=== PATIENT | female | born 1930 | race Caucasian/White ===

== ENCOUNTER 2016-04-29 12:21 | Emergency (ER) | payer OTHER, MEDICARE ==
[~2016-04-29] VITALS: Ht 170.2 cm; Wt 72.6 kg
[~2016-04-29 12:21] MED LIST: ALPRAZOLAM0.5 M4 PO; ANUSOL-HC30 GM TOP; ASPIR 8181 MG PO; ASPIRIN EC81 M1 PO; AUGMENTIN 875 M1 TAB PO; BALANCED B COM1 EACH PO; CENTRUM SILVER1 EAC3 PO; CLINDAMYCIN300 MG PO; COUMADIN 3 MG TA3 MG PO; COUMADIN2 M1 PO; DILTIAZEM HCL360 M1 PO; FIORICET 325 MG1 TAB PO; FISH OIL 500 M1 EAC1 PO; FISH OIL CONC1000 MG PO; FUROSEMIDE20 M1 PO; LOPRESSOR50 M1 PO; QUETIAPINE FUMA50 M1 PO; VITAMIN C1000 M4 PO; VITAMIN D3400 UNI1 PO; VITAMIN E400 UNI1 PO; ZINC CHELATED50 MG PO
--- NOTE | 2016-04-29 13:12 | ED DYSPNEA/ASTHMA COMPLAINT ---
History of Present Illness General Chief Complaint: Dyspnea (COPD, CHF, Other) Stated Complaint: SOB, COUGH Source: patient, old records Exam Limitations: no limitations Vital Signs & Intake/Output Vital Signs & Intake/Output Vital Signs Date Time Temp Pulse Resp B/P Pulse O2 O2 Flow FiO2 Ox Delivery Rate 04/29 1429 97.0 82 18 153/71 92 Room Air 04/29 1345 97.8 80 20 138/74 96 Room Air 04/29 1233 97.4 84 20 145/89 97 Room Air Room Air Allergies Coded Allergies: albuterol (Mild, AFIB 04/11/15) Reconcile Medications Alprazolam 0.5 MG TABLET 1 TAB PO BIDP PRN ANXIETY (Reported) Ascorbic Acid (Vitamin C) 1,000 MG TABLET 1 TAB PO DAILY SUPPLEMENT (Reported ) Aspirin (Ecotrin*) 81 MG TABLET.DR 1 TAB PO DAILY HEART HEALTH (Reported) Cholecalciferol (Vitamin D3) (Vitamin D3) 400 UNIT TABLET 1 TAB PO DAILY SUPPLEMENT (Reported) Furosemide 20 MG TABLET 1 TAB PO Saturday WATER PILL (Reported) Guaifenesin/Dextromethorphan (Mucinex Dm ER 600-30 MG Tablet) 600 MG-30 MG TAB.ER.12H 1 TAB PO BIDP PRN COUGH/CONGESTION Metoprolol Tartrate (Lopressor) 50 MG TABLET 1 TAB PO BID BP (Reported) Multivit-Min/FA/Lycopen/Lutein (Centrum Silver Tablet) 0.4 MG-300 MCG-250 MCG TABLET 1 TAB PO DAILY SUPPLEMENT (Reported) [facility]-3/Dha/Epa/Fish Oil (Fish Oil 500 MG Softgel) 60 MG-90 MG-500 MG CAPSULE 3 CAP PO DAILY SUPPLEMENT (Reported) Quetiapine Fumarate 50 MG TABLET 1 TAB PO QPM DEPRESSION (Reported) Vitamin B Complex & Vit C No.3 (Balanced B Complex-Vit C) 15-10-300 TABLET.ER 1 TAB PO DAILY SUPPLEMENT (Reported) Vitamin E (Dl,Tocopheryl Acet) (Vitamin E) 400 UNIT CAPSULE 1 CAP PO DAILY SUPPLEMENT (Reported) Warfarin Sodium (Coumadin) 2 MG TABLET 1 TAB PO 1700 BLOOD THINNER (Reported) ZINC (Zinc Chelated) 50 MG TABLET 1 TAB PO DAILY SUPPLEMENT (Reported) Triage Note: TRIAGE: 85 Y/O FEMALE PRESENTS C/O "PALPITATIONS, SHORTNESS OF BREATH, AND I CAUGHT MY 'S PNEUMONIA. HE'S HERE, TOO. WHEN I BREATHE, I GET A LOT OF PAIN." SPO2 97%. Triage Nurses Notes Reviewed? yes Onset: Gradual Duration: day(s):, continues in ED, waxing and waning Severity: moderate, severe Activities at Onset: none Modifying Factors: Worsens With: other (EXERTION/COUGH). HPI: Patient presents for evaluation of chest pain dyspnea and mildly productive cough for 2 weeks. Patient states her just returned from a hospitalization for pneumonia and she feels she might be coming down with a pneumonia too. Past History Travel History Traveled to [place] past 21 day No Medical History Any Pertinent Medical History? 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 No Review of Systems Review of Systems Constitutional: Reports: no symptoms. EENTM: Reports: no symptoms. Respiratory: Reports: see HPI. Cardiovascular: Reports: no symptoms. GI: Reports: no symptoms. Genitourinary: Reports: no symptoms. Musculoskeletal: Reports: no symptoms. Skin: Reports: no symptoms. Neurological/Psychological: Reports: no symptoms. Hematologic/Endocrine: Reports: no symptoms. Immunologic/Allergic: Reports: no symptoms. All Other Systems: Reviewed and Negative Physical Exam Physical Exam Respiratory: SEE BELOW Comments: Gen.: Well-nourished, well-developed, no acute respiratory distress. Head: Normocephalic, atraumatic. Eyes: Normal inspection bilaterally Ears: Normal inspection bilaterally Nose: Normal inspection Throat/mouth : Moist mucosa Neck: Supple, full range of motion, no goiter Heart: Regular rate and rhythm, no murmurs rubs or gallops Lungs: Clear to auscultation bilaterally with normal air entry Chest: Nontender Back: Normal range of motion Abdomen: Soft, nontender, nondistended, normal bowel sounds Extremities: Normal range of motion grossly, equal radial pulses, no cyanosis clubbing or edema Neurologic: Cranial nerves grossly intact, speech is clear Skin: warm and dry Psychiatric: Calm, cooperative, no apparent delusions or hallucinations Core Measures ACS in differential dx? No Severe Sepsis Present: No Septic Shock Present: No Progress Differential Diagnosis: asthma, bronchitis, CHF, COPD, pneumonia, pneumothorax Plan of Care: Orders Procedure Date/time Status TROPONIN LEVEL 04/29 131 Complete MAGNESIUM 04/29 131 Complete CBC WITHOUT DIFFERENTIAL 04/29 131 Complete BASIC METABOLIC PANEL 04/29 131 Complete EKG 04/29 1222 Active Laboratory Tests 04/29/16 1322: Anion Gap 10, Estimated GFR > 60, BUN/Creatinine Ratio 12.9, Glucose 99, Calcium 9.6, Magnesium 2.4 H, Troponin I < 0.01, CBC w Diff NO MAN DIFF REQ, RBC 4.60, MCV 84.3, MCH 28.2, RDW 15.7 H, MPV 10.2, Gran % 62.7, Lymphocytes % 21.6, Monocytes % 13.7 H, Eosinophils % 1.1, Basophils % 0.9, Absolute Granulocytes 2.9, Absolute Lymphocytes 1.0 L, Absolute Monocytes 0.6, Absolute Eosinophils 0.1, Absolute Basophils 0, PUBS MCHC 33.4 Diagnostic Imaging: Discussed w/RAD: CT Scan. Radiology Impression: PATIENT: YOKO HUGHES PRESENT AGE: 85 PATIENT ACCOUNT NO: [id number] : 29 LOCATION: [facility] ORDERING PHYSICIAN: TOM BISHOP MD SERVICE DATE: 04/29/16 EXAM TYPE: RAD - XRY-CHEST XRAY, PA AND LATERAL EXAMINATION: XR CHEST CLINICAL INFORMATION: Shortness of breath. Pneumonia. COMPARISON: 07/01/2015 TECHNIQUE: 2 views of the chest were obtained. FINDINGS: Heart size remains mildly enlarged. Evidence of previous cardiac surgery. Dual-chamber pacer leads remain stable and grossly intact. Focal eventration right hemidiaphragm anteromedially stable. No CHF. No infiltrate or major zones of airspace disease. No ectopic air. No pleural fluid. Kyphosis upper dorsal spine. IMPRESSION: No infiltrate or CHF. DICTATED BY: THA VALLECILLO MD DATE/TIME DICTATED:04/29/161340 SCROLL SAW OPERATOR:JESSENIA DATE/ TIME TRANSCRIBED:03/19/17 / 1341 CONFIDENTIAL, DO NOT COPY WITHOUT APPROPRIATE AUTHORIZATION. <Electronically signed in Other Vendor System> SIGNED BY: THA VALLECILLO MD 04/29/16 6004 Initial ED EKG: av PACED RHYTHM WITH RATE OF 89 Prior EKG: unchanged Comments: 04/29/2016 3:14:27 PM I have updated patient on test results. She declined an asthma inhaler stating she gets a severe reaction to those. She is simply requesting a cough medication. Departure Departure Disposition: HOME OR SELF CARE Condition: Stable Clinical Impression Primary Impression: Bronchitis Referrals: SUKI GARDNER,PRISCILLA Quiroga (PCP/Family) Additional Instructions: Cough and congestion medication as prescribed. Maintained a good fluid intake. No exertion. Follow-up with your primary care doctor if not improving over the next 5-7 days. Return if any concerns or sudden worsening. Thank you for choosing the [facility] Department for your care. It was a pleasure to serve you today. Tom Bishop M.D. [facility] Departure Forms: Customer Survey General Discharge Information Prescriptions: Current Visit Scripts Guaifenesin/Dextromethorphan (Mucinex Dm ER 600-30 MG Tablet) 1 TAB PO BIDP PRN COUGH/CONGESTION #20 TAB Critical Care Note Critical Care Note Critical Care Time: non-applicable
[2016-04-29 13:42] LABS: ABSOLUTE BASOPHIL COUNT 0 /CUMM (0.0-0.2); ABSOLUTE EOSINOPHIL COUNT 0.1 /CUMM (0.0-0.7); ABSOLUTE GRANULOCYTE CT 2.9 /CUMM (1.4-6.5); ABSOLUTE MONOCYTE COUNT 0.6 /CUMM (0.10-0.60); BASOPHIL % 0.9 % (0.0-2.0); EOSINOPHIL % 1.1 % (0-5); GRANULOCYTE % 62.7 % (42.2-75.2); HEMATOCRIT 38.8 % (37-47); MEAN CORPUSCULAR HGB 28.2 PG (27.0-31.0); MEAN CORPUSCULAR HGB CONC 33.4 G/DL (33.0-37.0); MEAN CORPUSCULAR VOLUME 84.3 FL (81.0-99.0); MEAN PLATELET VOLUME 10.2 FL (7.4-10.4); PLATELET COUNT 139 /CUMM (130-400); RBC DISTRIBUTION WIDTH 15.7 % (11.5-14.5); WHITE BLOOD CELL COUNT 4.6 /CUMM (4.8-10.8)
--- NOTE | 2016-04-29 13:45 | RADIOLOGY REPORT ---
EXAMINATION: XR CHEST CLINICAL INFORMATION: Shortness of breath. Pneumonia. COMPARISON: 07/01/2015 TECHNIQUE: 2 views of the chest were obtained. FINDINGS: Heart size remains mildly enlarged. Evidence of previous cardiac surgery. Dual-chamber pacer leads remain stable and grossly intact. Focal eventration right hemidiaphragm anteromedially stable. No CHF. No infiltrate or major zones of airspace disease. No ectopic air. No pleural fluid. Kyphosis upper dorsal spine. IMPRESSION: No infiltrate or CHF.
[2016-04-29 14:29] VITALS: BP 153/71
[2016-04-29] MEDS ORDERED: MUCINEX DM ER1 EAC1 PO (15:14)
== END 2016-04-29 15:47 ==
LOC: ERH 12:21
PROVIDERS: Emergency Medicine
DX: J40 Bronchitis, not specified as acute or chronic (principal); Z87.891 Personal history of nicotine dependence
CPT/HCPCS: 93005; 93010

== ENCOUNTER 2016-05-01 07:30 | Emergency (ER) | payer OTHER, MEDICARE ==
[~2016-05-01] VITALS: Ht 170.2 cm; Wt 72.6 kg
[~2016-05-01 07:30] MED LIST changes: +MUCINEX DM ER1 EAC1 PO
--- NOTE | 2016-05-01 07:36 | ED INFLUENZA/URI COMPLAINT ---
History of Present Illness General Chief Complaint: Upper Respiratory Sx/Fever Stated Complaint: URI SEEN HERE SATURDAY Source: patient Exam Limitations: no limitations Vital Signs & Intake/Output Vital Signs & Intake/Output Vital Signs Date Time Temp Pulse Resp B/P Pulse O2 O2 Flow FiO2 Ox Delivery Rate 05/01 0850 98.3 72 18 125/71 98 Room Air 05/01 0820 95 05/01 0733 97.4 88 16 133/87 96 Room Air Allergies Coded Allergies: albuterol (Mild, AFIB 04/11/15) Reconcile Medications Alprazolam 0.5 MG TABLET 1 TAB PO BIDP PRN ANXIETY (Reported) Ascorbic Acid (Vitamin C) 1,000 MG TABLET 1 TAB PO DAILY SUPPLEMENT (Reported ) Aspirin (Ecotrin*) 81 MG TABLET.DR 1 TAB PO DAILY HEART HEALTH (Reported) Azithromycin (Zithromax) 250 MG TABLET 1 DP PO D BRONCHITIS START 05/02 Cholecalciferol (Vitamin D3) (Vitamin D3) 400 UNIT TABLET 1 TAB PO DAILY SUPPLEMENT (Reported) Furosemide 20 MG TABLET 1 TAB PO Saturday WATER PILL (Reported) Guaifenesin/Dextromethorphan (Mucinex Dm ER 600-30 MG Tablet) 600 MG-30 MG TAB.ER.12H 1 TAB PO BIDP PRN COUGH/CONGESTION Metoprolol Tartrate (Lopressor) 50 MG TABLET 1 TAB PO BID BP (Reported) Multivit-Min/FA/Lycopen/Lutein (Centrum Silver Tablet) 0.4 MG-300 MCG-250 MCG TABLET 1 TAB PO DAILY SUPPLEMENT (Reported) [facility]-3/Dha/Epa/Fish Oil (Fish Oil 500 MG Softgel) 60 MG-90 MG-500 MG CAPSULE 3 CAP PO DAILY SUPPLEMENT (Reported) Prednisone 20 MG TABLET 2 TAB PO D BRONCHITIS Quetiapine Fumarate 50 MG TABLET 1 TAB PO QPM DEPRESSION (Reported) Vitamin B Complex & Vit C No.3 (Balanced B Complex-Vit C) 15-10-300 TABLET.ER 1 TAB PO DAILY SUPPLEMENT (Reported) Vitamin E (Dl,Tocopheryl Acet) (Vitamin E) 400 UNIT CAPSULE 1 CAP PO DAILY SUPPLEMENT (Reported) Warfarin Sodium (Coumadin) 2 MG TABLET 1 TAB PO 1700 BLOOD THINNER (Reported) ZINC (Zinc Chelated) 50 MG TABLET 1 TAB PO DAILY SUPPLEMENT (Reported) Triage Note: 85 Y/O FEMALE C/O CONTINUED URI SYMPTOMS - WAS EVAL'D SATURDAY AND STATES SHE FEELS NO BETTER. NOW C/O NAUSEA/VOMITING AND WEAKNESS. STATES IS CURRENTLY ADMITTED FOR PNEUMONIA AND PT IS CONCERNED SHE HAS IT WELL. REPORTS "YELLOW MUCOUS". AFEBRILE. Triage Nurses Notes Reviewed? yes HPI: 85 year old female presents with cough, fever, chills, nausea and loss of appetite for the last 1.5 weeks. Intermittent production of clear sputum now turning darker. Associated palpitations. She was seen here on Saturday and given mucinex DM. She had a negative CXR that day and normal blood work. Past History Travel History Traveled to [place] past 21 day No Medical History Any Pertinent Medical History? 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 No Review of Systems Review of Systems Constitutional: Reports: chills, weakness. EENTM: Reports: no symptoms. Respiratory: Reports: cough, short of breath, sputum production. Cardiovascular: Denies: chest pain, palpitations. GI: Reports: see HPI (poor po intake). Genitourinary: Reports: no symptoms. Musculoskeletal: Reports: no symptoms. Skin: Reports: no symptoms. Neurological/Psychological: Reports: no symptoms. Hematologic/Endocrine: Denies: bruising, bleeding, polyuria, polydipsia. Immunologic/Allergic: Denies: splenectomy. All Other Systems: Reviewed and Negative Physical Exam Physical Exam General Appearance: alert, awake, anxious Head: atraumatic Eyes: Bilateral: PERRL, EOMI. Ears, Nose, Throat: DRY TONGUE Respiratory: wheezing Cardiovascular: regular rate/rhythm Peripheral Pulses: 2+ radial (R), 2+ radial (L) Gastrointestinal: normal bowel sounds, soft, non-tender Neurologic/Psych: awake, alert Core Measures Severe Sepsis Present: No Septic Shock Present: No Progress Differential Diagnosis: pneumonia, BRONCHITIS Plan of Care: Orders Procedure Date/time Status EKG 05/01 0826 Active RT ED ORDERS 05/01 0758 Active Improved aeration after Atrovent and patient feels better. Vital signs within normal limits in the emergency department. Patient given prednisone and azithromycin as her sputum has changed color and she is feeling worse. She will follow up with her PCP in the office. (DANA GARDNER,SRINATH) Initial ED EKG: pacemaker rhythm Prior EKG: unchanged Departure Departure Time of Disposition: 844 Disposition: HOME OR SELF CARE Condition: Stable Clinical Impression Primary Impression: Bronchitis Referrals: SUKI GARDNER,PRISCILLA Quiroga (PCP/Family) Additional Instructions: Take the prednisone and azithromycin as directed. You may continue the over-the -counter Mucinex at home. Drink plenty of fluids and follow-up with her doctor in the office. Return to the ER for any changing or worsening symptoms. Departure Forms: Customer Survey General Discharge Information Prescriptions: Current Visit Scripts Prednisone 2 TAB PO D #6 TAB Azithromycin (Zithromax) 1 DP PO D #4 TAB START 05/02
[2016-05-01] MEDS ORDERED: PREDNISONE20 M1 PO (08:47)
[2016-05-01] MEDS ORDERED: ZITHROMAX250 M2 PO (08:47)
[2016-05-01 08:50] VITALS: BP 125/71
== END 2016-05-01 09:16 ==
LOC: ERH 07:30
DX: J40 Bronchitis, not specified as acute or chronic (principal); Z87.891 Personal history of nicotine dependence
CPT/HCPCS: 1263; 93005; 93010; J0456

== ENCOUNTER 2016-05-04 08:17 | Inpatient (IN) | payer OTHER, MEDICARE ==
[~2016-05-04] VITALS: Ht 170.2 cm; Wt 72.6 kg
[~2016-05-04 08:17] MED LIST changes: +PREDNISONE20 M1 PO; +ZITHROMAX250 M2 PO
--- NOTE | 2016-05-04 09:05 | ED DYSPNEA/ASTHMA COMPLAINT ---
History of Present Illness General Chief Complaint: Dyspnea (COPD, CHF, Other) Stated Complaint: SOB; URI Source: patient, family, old records Exam Limitations: no limitations Allergies Coded Allergies: No Known Allergies (05/04/16) Reconcile Medications Alprazolam 0.5 MG TABLET 1 TAB PO BIDP PRN ANXIETY (Reported) Ascorbic Acid (Vitamin C) 1,000 MG TABLET 1 TAB PO DAILY SUPPLEMENT (Reported ) Aspirin (Ecotrin*) 81 MG TABLET.DR 1 TAB PO DAILY HEART HEALTH (Reported) Cholecalciferol (Vitamin D3) (Vitamin D3) 400 UNIT TABLET 1 TAB PO DAILY SUPPLEMENT (Reported) Furosemide 20 MG TABLET 1 TAB PO Saturday WATER PILL (Reported) Guaifenesin/Dextromethorphan (Mucinex Dm ER 600-30 MG Tablet) 600 MG-30 MG TAB.ER.12H 1 TAB PO BIDP PRN COUGH/CONGESTION Metoprolol Tartrate (Lopressor) 50 MG TABLET 1 TAB PO BID BP (Reported) Multivit-Min/FA/Lycopen/Lutein (Centrum Silver Tablet) 0.4 MG-300 MCG-250 MCG TABLET 1 TAB PO DAILY SUPPLEMENT (Reported) [place]-3/Dha/Epa/Fish Oil (Fish Oil 500 MG Softgel) 60 MG-90 MG-500 MG CAPSULE 3 CAP PO DAILY SUPPLEMENT (Reported) Quetiapine Fumarate 50 MG TABLET 1 TAB PO QPM DEPRESSION (Reported) Vitamin B Complex & Vit C No.3 (Balanced B Complex-Vit C) 15-10-300 TABLET.ER 1 TAB PO DAILY SUPPLEMENT (Reported) Vitamin E (Dl,Tocopheryl Acet) (Vitamin E) 400 UNIT CAPSULE 1 CAP PO DAILY SUPPLEMENT (Reported) Warfarin Sodium (Coumadin) 2 MG TABLET 1 TAB PO 1700 BLOOD THINNER (Reported) ZINC (Zinc Chelated) 50 MG TABLET 1 TAB PO DAILY SUPPLEMENT (Reported) Triage Note: PT C/O SOB AND WHEEZING SINCE YESTERDAY. PT C/O PRODUCTIVE COUGH AND STATES SHE CAN'T GET IN TOUCH WITH DR BURGOS. Triage Nurses Notes Reviewed? yes HPI: 85-year-old female returns to the ER for her third visit for same complaints of shortness of breath wheezing cough congestion and productive sputum. She has had symptoms for approximately 2 weeks and has been seen here twice before for this. First visit she was placed on Mucinex, second visit which was 3 days ago, she was given a short course of prednisone and Zithromax, she had negative chest x-ray and labs previously, she feels no better. Her is also sick with pneumonia. She has a history of anxiety and daughter believes that there may be a component of anxiety to this as well. She denies any fever or chest pain. She has a remote history of smoking many years ago. She has no diagnosis of COPD or pneumonia as recently (SPARKLE FITZPATRICK) Vital Signs & Intake/Output Vital Signs & Intake/Output Vital Signs Date Time Temp Pulse Resp B/P Pulse O2 O2 Flow FiO2 Ox Delivery Rate 05/04 1508 95 Room Air 05/04 1508 98.1 77 18 146/90 95 Room Air 05/04 1121 96.9 73 18 150/72 96 05/04 0937 93 05/04 0828 97.8 86 20 162/98 96 Room Air Past History Travel History Traveled to [place] past 21 day No Medical History Any Pertinent Medical History? 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 No (SPARKLE FITZPATRICK) Review of Systems Review of Systems Constitutional: Reports: see HPI. EENTM: Reports: no symptoms. Cardiovascular: Reports: no symptoms. GI: Reports: no symptoms. Genitourinary: Reports: no symptoms. Musculoskeletal: Reports: no symptoms. Skin: Reports: no symptoms. Neurological/Psychological: Reports: no symptoms. Hematologic/Endocrine: Reports: no symptoms. Immunologic/Allergic: Reports: no symptoms. All Other Systems: Reviewed and Negative (SPARKLE FITZPATRICK) Physical Exam Physical Exam Respiratory: chest non-tender, no respiratory distress, INCREASED RESPIRATORY RATE. mILDLY PROLONGED EXPIRATORY PHASE. pOSITIVE RHONCHI AND WHEEZING NOTED THROUGHOUT Cardiovascular: regular rate/rhythm, murmur Comments: Well-developed well-nourished no apparent distress. HEENT: Atraumatic, extraocular motion intact Neck: Supple, no lymphadenopathy, no JVD Back: Nontender Respiratory: No respiratory distress Abdomen: Soft nontender Extremities: No edema, full range of motion Neuro: Alert and oriented x3 Psych: Mood affect normal, normal memory normal judgment. Skin: Warm and dry, no rash on exposed skin (ROLAN TREVIZO,SPARKLE) Core Measures ACS in differential dx? No Severe Sepsis Present: No Septic Shock Present: No (JAY LIN DO) Progress Diagnostic Imaging: Viewed by Me: Radiology Read. Discussed w/RAD: Radiology Read. CXR Impression: PATIENT: YOKO HUGHES PRESENT AGE: 85 PATIENT ACCOUNT NO: [id number] : 29 LOCATION: [facility] ORDERING PHYSICIAN: SPARKLE TREVIZO SERVICE DATE: 05/04/16 EXAM TYPE: RAD - XRY-CHEST XRAY, PA AND LATERAL EXAMINATION: XR CHEST CLINICAL INFORMATION: Give cough. COMPARISON: 04/29/2016. 07/01/2015. TECHNIQUE: 2 views of the chest were obtained. FINDINGS: Patient is status post median sternotomy and valve replacement most likely mitral. A right pectoral pacer is identified with multiple leads unchanged. The cardiomediastinal silhouette is otherwise unremarkable. The lungs are hyperexpanded. The lungs and pleural spaces appear clear. There is no evidence of pneumothorax or pulmonary edema. Included osseous structures appear largely unremarkable. IMPRESSION: There are postoperative changes with underlying COPD changes suggested without evidence of an acute intrathoracic process. DICTATED BY: ZENA SPANGLER MD DATE/TIME DICTATED:05/04 DIESEL ENGINE MECHANIC APPRENTICE:JESSENIA DATE/TIME TRANSCRIBED:05/04/16934 Initial ED EKG: A-V DUAL PACED. 80BPM Prior EKG: unchanged Rhythm Strip: PACED Comments: PATIENT GIVEN 60 MG OF SOLU-MEDROL iv AND GIVEN A IPRATROPIUM breathing treatment. She feels no better after multiple re-evaluations. Chest x-ray is unremarkable except for possible mild early COPD. Lab testing is unremarkable except for mild elevated in her PT/INR. Patient ambulated off oxygen with a O2 sat monitor and desatted to 88% and became significant short of breath. She continues to wheeze and cough with congestion. We will admit her to the hospital for continued neb treatments and IV steroids as she has failed outpatient treatment (ROLAN TREVIZO,SPARKLE) Differential Diagnosis: AMI, bronchitis, CHF, COPD, pericarditis, pulmonary embolism, pneumonia, unstable angina Plan of Care: Orders Procedure Date/time Status PROTHROMBIN TIME 05/05 0600 Active CBC WITHOUT DIFFERENTIAL 05/05 0600 Active BASIC ELECTROLYTES PLUS BUN&CR 05/05 0600 Active Heart Healthy Diet 05/04 L Complete Heart Healthy Diet 05/04 D Active Vital Signs 05/04 1442 Active Teach/Educate 05/04 1442 Active Pain Treatment and Response 05/04 1442 Active Nutritional Intake, Monitor 05/04 1442 Active Isolation 05/04 1442 Active Intake & Output 05/04 1442 Active Patient Care Conference 05/04 1442 Active Activity/Ambulation 05/[address] CHEST WO IV CONTRAST 05/04 1312 Active Pathway - chart 05/04 1236 Active House Staff 05/04 1236 Active TRC EVALUATION (GEN) 05/04 1231 Active RAPID VIRAL INFLUENZA A 05/04 1231 Complete STREP PNEUMO URINARY ANTIGEN 05/04 1231 Active LEGIONELLA URINARY ANTIGEN 05/04 1231 Active LOWER RESPIRATORY CULTURE 05/04 1231 Active BLOOD CULTURE 05/04 1231 Active URINALYSIS 05/04 1231 Active Admit to inpatient 05/04 1228 Active Patient Data 05/04 1212 Active Misc Message 05/04 1210 Active ED Holding Orders 05/04 1210 Active Code Status 05/04 1210 Active Patient Data 05/04 1144 Active Add-on Test (ER Only) 05/04 0946 Active PROTHROMBIN TIME 05/04 0923 Complete TROPONIN LEVEL 05/04 0854 Complete COMPREHENSIVE METABOLIC PANEL 05/04 0854 Complete CBC WITHOUT DIFFERENTIAL 05/04 0854 Complete B-TYPE NATRIURETIC PEP (BNP) 05/04 0854 Complete EKG 05/04 0818 Active VTE Mechanical Prophylaxis 05/04 UNK Active Vital Signs 05/04 UNK Active Intake & Output 05/04 UNK Active Current Medications Sig/Cristhian Start time Last Medication Dose Stop Time Status Admin Furosemide 20 MG 05/07 1000 AC (Lasix) Aspirin Buffered 81 MG DAILY 05/05 1000 AC (Ecotrin) Metoprolol Tartrate 50 MG BID 05/04 2200 AC (Lopressor) Quetiapine Fumarate 50 MG QPM 05/04 2200 AC (SEROquel) Acetaminophen 650 MG Q6P PRN 05/04 1245 AC (Tylenol) Oxycodone/ 1 TAB Q6P PRN 05/04 1245 AC Acetaminophen (Percocet) Alprazolam 0.5 MG Q12P PRN 05/04 1230 AC (Xanax) 05/11 1229 Laboratory Tests 05/04/16 0923: Anion Gap 11, Estimated GFR > 60, BUN/Creatinine Ratio 25.0, Glucose 121 H, Calcium 9.9, Total Bilirubin 0.5, AST 38 H, ALT 43, Alkaline Phosphatase 68, Troponin I < 0.01, Oav-Y-Uvkkoxjbkwu Pept 865 H, Total Protein 6.9, Albumin 4.1 , Globulin 2.8, Albumin/Globulin Ratio 1.5, PT 49.9 *H, INR 4.83 *H, CBC w Diff NO MAN DIFF REQ, RBC 5.13, MCV 83.0, MCH 28.1, RDW 15.1 H, MPV 10.0, Gran % 73.2, Lymphocytes % 22.4, Monocytes % 4.3, Eosinophils % 0, Basophils % 0.1, Absolute Granulocytes 3.6, Absolute Lymphocytes 1.1 L, Absolute Monocytes 0.2, Absolute Eosinophils 0, Absolute Basophils 0, PUBS MCHC 33.9 Microbiology 05/04 1333 NASOPHARYN: Influenza Virus A & B Rapid Smear - COMP 05/04 1327 BLOOD: Blood Culture - RECD 05/04 1301 BLOOD: Blood Culture - RECD 05/04 1231 URINE ROUT: Legionella Antigen - ORD 05/04 1231 URINE ROUT: Streptococcus pneumoniae Antigen (M - ORD 05/04 1231 LOWER RESP: Respiratory Culture - ORD 05/04 1231 LOWER RESP: Gram Stain - ORD Departure Departure Disposition: HOME OR SELF CARE Condition: Stable Clinical Impression Primary Impression: COPD exacerbation Secondary Impressions: Hypoxia Referrals: PRISCILLA COHN MD (PCP/Family) Departure Forms: Customer Survey General Discharge Information Admission Note Spoke With: TANA VELAZQUEZ MD Documentation of Exam: Documentation of any treatments & extenuating circumstances including Concerns Regarding Discharge (functional status, medication knowledge or non-compliance, living conditions, etc.) that warrant an admission rather than observation: 85-year-old female, likely new diagnosis of COPD with COPD exacerbation with cough congestion and wheezing for 2 weeks felt outpatient treatment with antibiotics and prednisone, continues to have wheezing and shortness of breath, desatted here to 88% after treatments, requires admission to the hospital. IV steroids and nebulizer treatments required. Supplemental oxygen via nasal cannula possible pulmonology consult (SPARKLE FITZPATRICK) Admission Note Documentation of Exam: Documentation of any treatments & extenuating circumstances including Concerns Regarding Discharge (functional status, medication knowledge or non-compliance, living conditions, etc.) that warrant an admission rather than observation: PA/KIESELGUHR REGENERATOR OPERATOR Co-Sign Statement Statement: ED Attending supervision documentation- [X] I saw and evaluated the patient. I have also reviewed all the pertinent lab results and diagnostic results. I agree with the findings and the plan of care as documented in the PA's/KIESELGUHR REGENERATOR OPERATOR's documentation. [] I have reviewed the ED Record and agree with the PA's/KIESELGUHR REGENERATOR OPERATOR's documentation. [] Additions or exceptions (if any) to the PAs/KIESELGUHR REGENERATOR OPERATOR's note and plan are summarized below: [] I saw and evaluated the patient. She would desat on room air. She is being admitted to the hospital for further care. (JAY LIN DO) Critical Care Note Critical Care Note Critical Care Time: non-applicable (JAY LIN DO)
[2016-05-04 09:36] LABS: ABSOLUTE BASOPHIL COUNT 0 /CUMM (0.0-0.2); ABSOLUTE EOSINOPHIL COUNT 0 /CUMM (0.0-0.7); ABSOLUTE GRANULOCYTE CT 3.6 /CUMM (1.4-6.5); ABSOLUTE LYMPH COUNT 1.1 /CUMM (1.2-3.4); ABSOLUTE MONOCYTE COUNT 0.2 /CUMM (0.10-0.60); BASOPHIL % 0.1 % (0.0-2.0); EOSINOPHIL % 0 % (0-5); GRANULOCYTE % 73.2 % (42.2-75.2); HEMATOCRIT 42.6 % (37-47); MEAN CORPUSCULAR HGB 28.1 PG (27.0-31.0); MEAN CORPUSCULAR HGB CONC 33.9 G/DL (33.0-37.0); PLATELET COUNT 178 /CUMM (130-400); RBC DISTRIBUTION WIDTH 15.1 % (11.5-14.5); RED BLOOD CELL CT 5.13 /CUMM (4.20-5.40); WHITE BLOOD CELL COUNT 4.9 /CUMM (4.8-10.8)
--- NOTE | 2016-05-04 09:41 | RADIOLOGY REPORT ---
EXAMINATION: XR CHEST CLINICAL INFORMATION: Give cough. COMPARISON: 04/29/2016. 07/01/2015. TECHNIQUE: 2 views of the chest were obtained. FINDINGS: Patient is status post median sternotomy and valve replacement most likely mitral. A right pectoral pacer is identified with multiple leads unchanged. The cardiomediastinal silhouette is otherwise unremarkable. The lungs are hyperexpanded. The lungs and pleural spaces appear clear. There is no evidence of pneumothorax or pulmonary edema. Included osseous structures appear largely unremarkable. IMPRESSION: There are postoperative changes with underlying COPD changes suggested without evidence of an acute intrathoracic process.
[2016-05-04 10:09] LABS: PT 49.9 SEC (9.4-12.5)
--- NOTE | 2016-05-04 12:16 | History & Physical ---
HELADIO GARDNER,DAVID 05/04/16 1216: General Information and HPI MD Statement: I have seen and personally examined YOKO HUGHES and documented this H&P. The patient is a 85 year old F who presented with a patient stated chief complaint of [I feel short of breath and have a cough]. Source of Information: patient, family, old records Exam Limitations: no limitations History of Present Illness: This is an 85-year-old lady with a past history significant for atrial fibrillation/flutter, diastolic heart failure, mitral valve prolapse status post valvulotomy and repair in 2009, biventricular pacemaker placement in 2011, hypertension, anxiety and depression that presents to the emergency room at the chief complaint of cough, tactile fevers and chills. Patient states that her has been diagnosed with pneumonia and she has been actively taking care of him. She presented to the emergency room 6 days ago and was sent home thinking this was a viral URI, subsequently she we presented to the emergency room beginning of this week and was given a Z-Julio and by mouth prednisone. States that her symptoms have not improved. Admits to tactile fevers, decreased by mouth intake, yellow sputum, cough and dyspnea on exertion. Denies any chest pain, orthopnea, paroxysmal nocturnal dyspnea. Allergies/Medications Allergies: Coded Allergies: No Known Allergies (05/04/16) Home Med list Alprazolam 0.5 MG TABLET 1 TAB PO BIDP PRN ANXIETY (Reported) Ascorbic Acid (Vitamin C) 1,000 MG TABLET 1 TAB PO DAILY SUPPLEMENT (Reported ) Aspirin (Ecotrin*) 81 MG TABLET.DR 1 TAB PO DAILY HEART HEALTH (Reported) Cholecalciferol (Vitamin D3) (Vitamin D3) 400 UNIT TABLET 1 TAB PO DAILY SUPPLEMENT (Reported) Furosemide 20 MG TABLET 1 TAB PO Saturday WATER PILL (Reported) Guaifenesin/Dextromethorphan (Mucinex Dm ER 600-30 MG Tablet) 600 MG-30 MG TAB.ER.12H 1 TAB PO BIDP PRN COUGH/CONGESTION Metoprolol Tartrate (Lopressor) 50 MG TABLET 1 TAB PO BID BP (Reported) Multivit-Min/FA/Lycopen/Lutein (Centrum Silver Tablet) 0.4 MG-300 MCG-250 MCG TABLET 1 TAB PO DAILY SUPPLEMENT (Reported) [place]-3/Dha/Epa/Fish Oil (Fish Oil 500 MG Softgel) 60 MG-90 MG-500 MG CAPSULE 3 CAP PO DAILY SUPPLEMENT (Reported) Quetiapine Fumarate 50 MG TABLET 1 TAB PO QPM DEPRESSION (Reported) Vitamin B Complex & Vit C No.3 (Balanced B Complex-Vit C) 15-10-300 TABLET.ER 1 TAB PO DAILY SUPPLEMENT (Reported) Vitamin E (Dl,Tocopheryl Acet) (Vitamin E) 400 UNIT CAPSULE 1 CAP PO DAILY SUPPLEMENT (Reported) Warfarin Sodium (Coumadin) 2 MG TABLET 1 TAB PO 1700 BLOOD THINNER (Reported) ZINC (Zinc Chelated) 50 MG TABLET 1 TAB PO DAILY SUPPLEMENT (Reported) Past History Travel History Traveled to [place] past 21 day No Medical History Neurological: NONE EENT: NONE Cardiovascular: AFIB, PACEMAKER, MITRAL VALVE PROLAPSE Respiratory: NONE Gastrointestinal: NONE Hepatic: NONE Renal: NONE Musculoskeletal: NONE Psychiatric: anxiety Endocrine: NONE Blood Disorders: NONE Cancer(s): NONE 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 IADLs Independent: shopping, housework, finances, food prep, telephone, transportation , medication admin. Review of Systems Review of Systems Constitutional: Reports: see HPI. Exam & Diagnostic Data Last 24 Hrs of Vital Signs/I&O Vital Signs Date Time Temp Pulse Resp B/P Pulse O2 O2 Flow FiO2 Ox Delivery Rate 05/04 1121 96.9 73 18 150/72 96 05/04 0937 93 05/04 0828 97.8 86 20 162/98 96 Room Air Intake & Output 05/04 1600 05/04 0800 05/04 0000 Intake Total Output Total Balance Patient 160 lb Weight Physical Exam General Appearance Alert, Oriented X3, Cooperative HEENT Atraumatic, PERRLA, EOMI Neck Supple, No JVD Cardiovascular Normal S1, Normal S2, valve click appreciated, post ope changes on the chest, clean dry and well healed scar Lungs diffuse wheezing and ronchii Abdomen Normal Bowel Sounds, Soft, No Tenderness Neurological Normal Speech, Strength at 5/5 X4 Ext, Normal Tone, Sensation Intact, Cranial Nerves 3-12 NL Extremities No Clubbing, No Cyanosis Last 24 Hrs of Labs/Ebnson: Laboratory Tests 05/04/16922: Anion Gap 11, Estimated GFR > 60, BUN/Creatinine Ratio 25.0, Glucose 121 H, Calcium 9.9, Total Bilirubin 0.5, AST 38 H, ALT 43, Alkaline Phosphatase 68, Troponin I < 0.01, Adg-Y-Qznbibuzqda Pept 865 H, Total Protein 6.9, Albumin 4.1 , Globulin 2.8, Albumin/Globulin Ratio 1.5, PT 49.9 *H, INR 4.83 *H, CBC w Diff NO MAN DIFF REQ, RBC 5.13, MCV 83.0, MCH 28.1, RDW 15.1 H, MPV 10.0, Gran % 73.2, Lymphocytes % 22.4, Monocytes % 4.3, Eosinophils % 0, Basophils % 0.1, Absolute Granulocytes 3.6, Absolute Lymphocytes 1.1 L, Absolute Monocytes 0.2, Absolute Eosinophils 0, Absolute Basophils 0, PUBS MCHC 33.9 Diagnostic Data EKG Results Rate 149, QRS 178, QTC 536, ventricular paced complexes CXR Results PATIENT: YOKO HUGHES PRESENT AGE: 85 PATIENT ACCOUNT NO: [id number] : 29 LOCATION: [facility] ORDERING PHYSICIAN: SPARKLE TREVIZO SERVICE DATE: 05/04/16 EXAM TYPE: RAD - XRY-CHEST XRAY, PA AND LATERAL EXAMINATION: XR CHEST CLINICAL INFORMATION: Give cough. COMPARISON: 04/29/2016. 07/01/2015. TECHNIQUE: 2 views of the chest were obtained. FINDINGS: Patient is status post median sternotomy and valve replacement most likely mitral. A right pectoral pacer is identified with multiple leads unchanged. The cardiomediastinal silhouette is otherwise unremarkable. The lungs are hyperexpanded. The lungs and pleural spaces appear clear. There is no evidence of pneumothorax or pulmonary edema. Included osseous structures appear largely unremarkable. IMPRESSION: There are postoperative changes with underlying COPD changes suggested without evidence of an acute intrathoracic process. DICTATED BY: ZENA SPANGLER MD DATE/TIME DICTATED:05/04/16934 SECOND CHEF:JESSENIA DATE/TIME TRANSCRIBED:05/04/16934 CONFIDENTIAL, DO NOT COPY WITHOUT APPROPRIATE AUTHORIZATION. <Electronically signed in Other Vendor System> SIGNED BY: ZENA SPANGLER MD [id number] Assessment/Plan Assessment: Assessment- 1. Acute hypoxic respiratory failure; likely secondary to bronchitis versus pneumonia, there is no radiological evidence of pneumonia however radiological changes normally appear a few days after clinical course 2. Likely COPD 3. Elevated proBNP is 895, in the setting of known diastolic heart failure 4. History of mitral valve prolapse, status post valve repair in 2009 5. History of known atrial fibrillation/flutter, status post Maze procedure and biventricular pacemaker placement in 2011 6. History hypertension 7. History of depression and anxiety 8. Supratherapeutic INR 4.83 Plan- General med admit Vitals per protocol Blood culture 2, urinalysis, sputum culture, flu swab, urine strep and Legionella antigens Will cover her with ceftriaxone and azithromycin for likely community-acquired pneumonia IV steroids, Solu-Medrol 40 twice a day TRC evaluation and nebs Continue her beta brie Continue Lasix Continue Xanax Heart healthy diet Pain pathway DVT prophylaxis being addressed with Coumadin Full code As Ranked By This Provider Problem List: 1. Hypoxia 2. COPD exacerbation 3. Bronchitis 4. Dehydration Core Measures/Miscellaneous Acute Coronary Syndrome ACS Diagnosis: No Cerebrovascular Accident CVA/TIA Diagnosis: No Congestive Heart Failure CHF Diagnosis: No Venous Thromboembolism VTE Risk Factors: Age > 40 No [facility] VTE prophylaxis d/t: VTE low risk No VTE Pharm Prophylaxis d/t: VTE low risk VTE Diagnosis: No VTE Type: NONE VTE Confirmed by (Test): NONE Severe Sepsis Severe Sepsis Present: No Septic Shock Septic Shock Present: No Miscellaneous Documentation Attending Case Discussed With: Dr. Isabel Primary Care Physician: PRISCILLA COHN MD Patient sees these Specialists Dr. Cruz Plasencia Level of Patient Care: General Medicine Resident Review Statement Resident Statement: examined this patient, discussed with paralegal internship MOJGAN ISABEL MD 05/04/16 1327: Attending MD Review Statement Attending Statement Attending MD Statement: examined this patient, discuss w/resident/PA/OUTSIDE INDUSTRIAL SALES REPRESENTATIVE, agreed w/resident/PA/OUTSIDE INDUSTRIAL SALES REPRESENTATIVE, reviewed EMR data (avail), discussed with nursing, discussed with case mgmt, reviewed images Attending Assessment/Plan: 85-year-old female ex-tobacco user with fairly extensive cardiac history including a valve ring placement and pacemaker placement. She is here with essentially her third hospital visit in the past few days for cough, shortness of breath and hypoxemia. Her got recently diagnosed with pneumonia and her symptoms all started on the and she is made two ED visits and her symptoms haven't resolved with outpatient oral antibiotics and meds. At this point I think she has a clinical pneumonia even though her chest x-ray doesn't show it. I also think she has underlying newly diagnosed COPD given that the chest x-ray saying changes of COPD. We'll get a noncontrast chest CT to better identify what is going on in the lungs and in the meantime give IV ceftriaxone and azithromycin for pneumonia. We'll check a flu swab and she already got IV steroids in the ER, will do a quick by mouth taper. Her INR is supratherapeutic and I think that's because of her Zithromax interfering with the Coumadin. We will let the INR drift down and she has no active signs of bleeding. Continue her cardiac meds and have Dr. Plasencia see her and follow closely.
--- NOTE | 2016-05-04 13:20 | Admission Certification ---
Admission Certification Certification Statement - As attending physician, I certify that at the time of - admission, based on clinical presentation, severity of - symptoms, need for further diagnostic testing and - therapeutic interventions, and risk of adverse outcomes - without in-hospital treatment, in my clinical assessment, - this patient requires an acute hospital stay for a minimum - of two nights or longer. I have also considered psychsocial - factors such as support system, advanced age, financial - issues, cognitive issues, and failed out-patient treatments, - past re-admission history, safety of patient, and lack of - compliance as applicable. Specific rationale supporting this admission is: Clinical pneumonia in patient with failed outpatient oral antibiotics.
--- NOTE | 2016-05-04 13:56 | Cons- Cardiology ---
General Information and HPI Consulting Request Date of Consult: 05/04/16 Requested By: ANASTASIYA JUNG M.D Reason for Consult: Cardiac evaluation in a patient with known heart disease who presents with acute respiratory distress. Source of Information: patient, old records Exam Limitations: no limitations History of Present Illness: Yoko Reid is an 85-year-old female with a very complicated past medical history. She initially was followed for mitral valve prolapse, which finally became severe enough to require mitral valve repair, which was done in June of 2009. She also had a maze procedure and over-sewing of the left atrial appendage. She was in atrial fibrillation prior to her surgery. She went into sinus rhythm, but reverted to atrial fibrillation. Subsequently, she was cardioverted and was on amiodarone. By September of 2010, she again was back in atypical atrial flutter. She had a normal ejection fraction at that time. Subsequently, she was found to be in an atypical atrial flutter or atrial tachycardia in March of 2013, and an echocardiogram showed an ejection fraction of 35% (40-45% by my estimation) in April of 2013. 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 She was referred to Dr. Grubbs for possible AV sterling ablation. On November 13, 2013, Dr. Grubbs performed an AV sterling ablation, and implanted a biventricular pacemaker. She appeared to convert to sinus rhythm after the procedure and a cardioversion. She was taken off of Diltiazem. She remains on anticoagulation with warfarin and is followed in the anticoagulation clinic. Subsequently Yoko has been doing pretty well. She has had varying degrees of atrial fibrillation, but recently has appeared to be mostly in AV pacing without any significant atrial fibrillation. I ordered an echocardiogram on her which showed an ejection fraction of 50% to 55%, and only showed some discoordination of septal contractility. There was mild mitral regurgitation and probably very mild mitral stenosis. The right ventricular systolic pressure was just mildly elevated at 35-40 mmHg Yoko had a hernia repair by Dr. So on 12/21/2015 which was successful and uncomplicated. Since that time she has been doing pretty well. She has had no chest pain, shortness of breath, palpitations, orthopnea, PND, ankle edema, dizziness or syncope. She is mainly complaining of anxiety. She was referred to [facility] for this. Her current medical regimen at home includes aspirin, Lasix 20 mg daily, metoprolol 50 mg twice a day, and warfarin from a cardiac standpoint. I last saw Yoko in January at which time she was doing pretty well. No changes were made to her regimen at that time. Subsequently she's had no cardiac issues , however recently her has been sick and was hospitalized for pneumonia at [facility] and was recently discharged.. For about one week Yoko has not been feeling well with increasing shortness of breath and cough and sputum production. She has not had a fever to her knowledge. She's had a couple of ER visits and has been given a Z-Julio earlier this week but is still not feeling well. She came to the emergency room and is being admitted for bronchitis and respiratory distress. She does have known underlying COPD. Allergies/Medications Allergies: Coded Allergies: No Known Allergies (05/04/16) Home Med List: Alprazolam 0.5 MG TABLET 1 TAB PO BIDP PRN ANXIETY (Reported) Ascorbic Acid (Vitamin C) 1,000 MG TABLET 1 TAB PO DAILY SUPPLEMENT (Reported ) Aspirin (Ecotrin*) 81 MG TABLET.DR 1 TAB PO DAILY HEART HEALTH (Reported) Cholecalciferol (Vitamin D3) (Vitamin D3) 400 UNIT TABLET 1 TAB PO DAILY SUPPLEMENT (Reported) Furosemide 20 MG TABLET 1 TAB PO Saturday WATER PILL (Reported) Guaifenesin/Dextromethorphan (Mucinex Dm ER 600-30 MG Tablet) 600 MG-30 MG TAB.ER.12H 1 TAB PO BIDP PRN COUGH/CONGESTION Metoprolol Tartrate (Lopressor) 50 MG TABLET 1 TAB PO BID BP (Reported) Multivit-Min/FA/Lycopen/Lutein (Centrum Silver Tablet) 0.4 MG-300 MCG-250 MCG TABLET 1 TAB PO DAILY SUPPLEMENT (Reported) [place]-3/Dha/Epa/Fish Oil (Fish Oil 500 MG Softgel) 60 MG-90 MG-500 MG CAPSULE 3 CAP PO DAILY SUPPLEMENT (Reported) Quetiapine Fumarate 50 MG TABLET 1 TAB PO QPM DEPRESSION (Reported) Vitamin B Complex & Vit C No.3 (Balanced B Complex-Vit C) 15-10-300 TABLET.ER 1 TAB PO DAILY SUPPLEMENT (Reported) Vitamin E (Dl,Tocopheryl Acet) (Vitamin E) 400 UNIT CAPSULE 1 CAP PO DAILY SUPPLEMENT (Reported) Warfarin Sodium (Coumadin) 2 MG TABLET 1 TAB PO 1700 BLOOD THINNER (Reported) ZINC (Zinc Chelated) 50 MG TABLET 1 TAB PO DAILY SUPPLEMENT (Reported) Current Medications: Current Medications Sig/Cristhian Start time Last Medication Dose Route Stop Time Status Admin Acetaminophen 650 MG Q6P PRN 05/04 1245 AC PO Alprazolam 0.5 MG Q12P PRN 05/04 1230 AC PO 05/11 1229 Alprazolam 0 .STK-MED ONE 05/04 1104 DC PO Alprazolam 0.5 MG ONCE ONE 05/04 1100 DC 05/04 PO 05/04 1101 1110 Aspirin Buffered 81 MG DAILY 05/05 1000 AC PO Azithromycin 500 MG DAILY 05/04 1245 AC Sodium Chloride 250 ML IV Ceftriaxone Sodium 1,000 MG DAILY 05/04 1234 AC IV Furosemide 20 MG 05/07 1000 AC PO Ibuprofen 600 MG Q6P PRN 05/04 1245 DC PO Ipratropium Bim 2.5 ML ONCE ONE 05/04 0930 DC 05/04 INH 05/04 0931 0936 Methylprednisolone 0 .STK-MED ONE 05/04 0952 DC .ROUTE Methylprednisolone 60 MG ONCE ONE 05/04 0930 DC 05/04 IV 05/04 0931 1023 Metoprolol Tartrate 50 MG BID 05/04 2200 AC PO Oxycodone/ 1 TAB Q6P PRN 05/04 1245 AC Acetaminophen PO Quetiapine Fumarate 50 MG QPM 05/04 2200 AC PO Review of Systems Review of Systems: She has no other complaints in the review of systems. Past History Travel History Traveled to [place] past 21 day No Medical History Neurological: NONE EENT: NONE Cardiovascular: AFIB, PACEMAKER, MITRAL VALVE PROLAPSE Respiratory: NONE Gastrointestinal: NONE Hepatic: NONE Renal: NONE Musculoskeletal: NONE Psychiatric: anxiety Endocrine: NONE Blood Disorders: NONE Cancer(s): NONE CHECKER AND PACKER/Reproductive: NONE Surgical History Surgical History: hernia repair-inguinal, hysterectomy, PACEMAKER MITRAL VALVE PROLAPSE SX Psychosocial History Services at Home: Nursing Smoking Status: Former Smoker ETOH Use: denies use Illicit Drug Use: denies illicit drug use Functional Ability ADLs Independent: dressing, eating, toileting, bathing. IADLs Independent: shopping, housework, finances, food prep, telephone, transportation , medication admin. ECHO Results (as available) Date of last Echo 04/26/15 EF% 50 Exam & Diagnostic Data Vital Signs and I&O Vital Signs Date Time Temp Pulse Resp B/P Pulse O2 O2 Flow FiO2 Ox Delivery Rate 05/04 1121 96.9 73 18 150/72 96 05/04 0937 93 05/04 0828 97.8 86 20 162/98 96 Room Air Intake & Output 05/04 1600 05/04 0800 05/04 0000 05/03 1600 05/03 0800 05/03 0000 Intake Total Output Total Balance Patient 160 lb Weight Physical Exam: Elderly female in no acute distress, complaining of cough and shortness of breath. HEENT exam normal Neck veins not distended Carotids normal Chest diffuse rhonchi and some inspiratory and expiratory wheezing noted Heart reveals regular rhythm with soft systolic murmur at the base. There is a pacemaker in the right anterior chest wall and a midsternal scar. Abdomen is benign Extremities reveal good pulses and no edema Neurologically she is anxious but otherwise normal Labs/Benson Results: Laboratory Tests 05/04 922 Chemistry Sodium (137 - 145 mmol/L) 139 Potassium (3.5 - 5.1 mmol/L) 4.2 Chloride (98 - 107 mmol/L) 101 Carbon Dioxide (22 - 30 mmol/L) 27 Anion Gap (5 - 16) 11 BUN (7 - 17 mg/dL) 15 Creatinine (0.5 - 1.0 mg/dL) 0.6 Estimated GFR (>60 ml/min) > 60 BUN/Creatinine Ratio (7 - 25 %) 25.0 Glucose (65 - 99 mg/dL) 121 H Calcium (8.4 - 10.2 mg/dL) 9.9 Total Bilirubin (0.2 - 1.3 mg/dL) 0.5 AST (14 - 36 U/L) 38 H ALT (9 - 52 U/L) 43 Alkaline Phosphatase (<127 U/L) 68 Troponin I (< 0.11 ng/ml) < 0.01 [id number] Pept (<125 pg/mL) 865 H Total Protein (6.3 - 8.2 g/dL) 6.9 Albumin (3.5 - 5.0 g/dL) 4.1 Globulin (1.9 - 4.2 gm/dL) 2.8 Albumin/Globulin Ratio (1.1 - 2.2 %) 1.5 Coagulation PT (9.4 - 12.5 SEC) 49.9 *H INR (0.90 - 1.19) 4.83 *H Hematology CBC w Diff NO MAN DIFF REQ WBC (4.8 - 10.8 /CUMM) 4.9 RBC (4.20 - 5.40 /CUMM) 5.13 Hgb (12.0 - 16.0 G/DL) 14.4 Hct (37 - 47 %) 42.6 MCV (81.0 - 99.0 FL) 83.0 MCH (27.0 - 31.0 PG) 28.1 RDW (11.5 - 14.5 %) 15.1 H Plt Count (130 - 400 /CUMM) 178 MPV (7.4 - 10.4 FL) 10.0 Gran % (42.2 - 75.2 %) 73.2 Lymphocytes % (20.5 - 51.1 %) 22.4 Monocytes % (1.7 - 9.3 %) 4.3 Eosinophils % (0 - 5 %) 0 Basophils % (0.0 - 2.0 %) 0.1 Absolute Granulocytes (1.4 - 6.5 /CUMM) 3.6 Absolute Lymphocytes (1.2 - 3.4 /CUMM) 1.1 L Absolute Monocytes (0.10 - 0.60 /CUMM) 0.2 Absolute Eosinophils (0.0 - 0.7 /CUMM) 0 Absolute Basophils (0.0 - 0.2 /CUMM) 0 PUBS MCHC (33.0 - 37.0 G/DL) 33.9 Diagnostic Data EKG Results EKG shows mostly AV pacing and the EKG cannot be interpreted further than that. CXR Results PATIENT: YOKO REID PRESENT AGE: 85 PATIENT ACCOUNT NO: [id number] : 29 LOCATION: [facility] ORDERING PHYSICIAN: SPARKLE TREVIZO SERVICE DATE: 05/04/16 EXAM TYPE: RAD - XRY-CHEST XRAY, PA AND LATERAL EXAMINATION: XR CHEST CLINICAL INFORMATION: Give cough. COMPARISON: 04/29/2016. 07/01/2015. TECHNIQUE: 2 views of the chest were obtained. FINDINGS: Patient is status post median sternotomy and valve replacement most likely mitral. A right pectoral pacer is identified with multiple leads unchanged. The cardiomediastinal silhouette is otherwise unremarkable. The lungs are hyperexpanded. The lungs and pleural spaces appear clear. There is no evidence of pneumothorax or pulmonary edema. Included osseous structures appear largely unremarkable. IMPRESSION: There are postoperative changes with underlying COPD changes suggested without evidence of an acute intrathoracic process. DICTATED BY: ZENA SPANGLER MD DATE/TIME DICTATED:05/04/16934 HOT ROLL INSPECTOR:JESSENIA DATE/TIME TRANSCRIBED:05/04/16934 CONFIDENTIAL, DO NOT COPY WITHOUT APPROPRIATE AUTHORIZATION. <Electronically signed in Other Vendor System> SIGNED BY: ZENA SPANGLER MD [id number] Assessment/Plan Assessment/Plan Yoko Reid presents with acute respiratory syndrome probably due to acute bronchitis. Her chest x-ray does not show any pneumonia but will be followed. She is not febrile and does not have a high white count. However she is pretty uncomfortable and her lung sounds have significant abnormalities. She will be treated with usual antibiotics, steroids, respiratory treatments etc. She has a negative troponin and slightly elevated BNP but there is no evidence of congestive heart failure. I would just continue her on her regular cardiac regimen. She has a supratherapeutic INR likely due to recent antibiotic use. I would just hold her Coumadin until her INR is in the therapeutic range and then just restart it. Thank you for asking me to see this patient. Please let me know if there are any other cardiac issues that need to be addressed during this hospitalization. Consult Acknowledgment - Thank you for your consult request.
[2016-05-04 15:08] VITALS: BP 146/90
--- NOTE | 2016-05-04 16:47 | CT SCAN REPORT ---
EXAMINATION: CT CHEST WITHOUT CONTRAST CLINICAL INFORMATION: Short of breath with dyspnea on exertion, pneumonia versus COPD. COMPARISON: 08/06/2009, plain films performed earlier the same day. TECHNIQUE: Multidetector volumetric CT imaging of the chest was done. Axial MIP volume rendering provided. Sagittal and coronal reformatted images were obtained. DLP: 315 mGy-cm FINDINGS: Respiratory motion artifact somewhat limits evaluation. LUNGS: There is no areas of consolidation to suggest underlying pneumonia. No suspicious appearing pulmonary nodules are seen. There is an indeterminate 3 mm left upper lobe nodule laterally near but not abutting the pleural surface image 199 of series 4. No other definite nodules are identified, however smaller nodules are difficult to entirely exclude due to the respiratory misregistration throughout the exam. Mild centrilobular emphysematous changes are suspected. There is mild left apical scarring. MEDIASTINUM: The heart is enlarged containing multiple pacer leads. Patient is status post mitral valve replacement. PLEURA: No effusions. AXILLA: No adenopathy. UPPER ABDOMEN: Unremarkable. OSSEOUS STRUCTURES: There is diffuse osteopenia without focal destructive or sclerotic lesions to suggest an aggressive process. Patient is status post median sternotomy with an ununited sternum. Multiple wires appear intact. IMPRESSION: 1. No evidence of an acute intrathoracic process. 2. Indeterminate 3 mm left upper lobe pulmonary nodule. No highly suspicious pulmonary nodules are identified to suggest a primary malignancy. 3. The heart is enlarged with multiple pacer leads.
[2016-05-04 22:00] VITALS: BP 116/70
[2016-05-05 06:00] VITALS: BP 128/74
[2016-05-05 07:56] LABS: ABSOLUTE BASOPHIL COUNT 0 /CUMM (0.0-0.2); ABSOLUTE EOSINOPHIL COUNT 0 /CUMM (0.0-0.7); ABSOLUTE GRANULOCYTE CT 4.3 /CUMM (1.4-6.5); ABSOLUTE MONOCYTE COUNT 0.7 /CUMM (0.10-0.60); BASOPHIL % 0.4 % (0.0-2.0); EOSINOPHIL % 0.1 % (0-5); GRANULOCYTE % 53.6 % (42.2-75.2); HEMATOCRIT 42.7 % (37-47); MEAN CORPUSCULAR HGB 27.7 PG (27.0-31.0); MEAN CORPUSCULAR VOLUME 84.2 FL (81.0-99.0); MEAN PLATELET VOLUME 10.8 FL (7.4-10.4); PLATELET COUNT 199 /CUMM (130-400); RBC DISTRIBUTION WIDTH 15.5 % (11.5-14.5); RED BLOOD CELL CT 5.07 /CUMM (4.20-5.40)
[2016-05-05 08:24] LABS: WHITE BLOOD CELL COUNT 7.9 /CUMM (4.8-10.8)
--- NOTE | 2016-05-05 08:33 | PN- Att Addend ---
Attending Addendum Attending Brief Note Patient seen and examined. She continues to complain of this hacking cough. She says her throat feels really raw from coughing so much. On exam she is afebrile, normotensive, heart rate is 84 and her sat is 94% on room air. She has coarse rhonchi and decreased breath sounds bilaterally, heart is S1-S2 irregular with a murmur, abdomen is soft nontender and she doesn't have any edema. Labs are pending. She is an 85-year-old female with pretty significant cardiac history with sternotomy, mitral valve repair, maze procedure and A. fib on Coumadin who is here with what I think is a COPD exacerbation. Her chest CT didn't show any opacities, showed mild centrilobular emphysema and she got IV steroids yesterday and she is on by mouth steroids today. I think we need to call pulmonary to see her. We probably don't need the antibiotics and the flu swab was negative as well. I'll order some Mucinex and Chloraseptic lozenges for her. I've also ordered a PT eval for discharge recommendations. Her INR was elevated, she had no signs of bleeding so we are letting it drift down and will follow up on what it is today.
--- NOTE | 2016-05-05 09:06 | PN- Housestaff ---
Subjective Follow-up For: Acute Hypoxic Respiratory Failure COPD Exacerbation Subjective: Patient seen and examined. She is seen sitting upright in her chair at bedside. She appears to be in no acute distress. She appears to be saturating adequately on room and without any obvious signs of respiratory distress. She appears well and is in good spirits. Patient admits to a hacking cough that is causing her some associated discomfort, but otherwise denies any new subjective complaints. Additionally she denies any headache, fever, chills, chest pain, palpitations, worsening shortness of breath, nausea, vomiting, diarrhea. No overnight events reported. Review of Systems Constitutional: Reports: see HPI. Objective Last 24 Hrs of Vital Signs/I&O Vital Signs Date Time Temp Pulse Resp B/P Pulse O2 O2 Flow FiO2 Ox Delivery Rate 05/05 0848 130/78 05/05 0600 98.1 83 18 128/74 94 Room Air 05/04 2200 97.6 71 18 116/70 96 Room Air 05/04 2046 71 116/70 05/04 1508 95 Room Air 05/04 1508 98.1 77 18 146/90 95 Room Air Intake & Output 05/05 1600 05/05 0800 05/05 0000 Intake Total 150 800 Output Total 350 400 Balance -200 400 Intake, Oral 150 800 Number 0 Bowel Movements Output, Urine 350 400 Physical Exam General Appearance: Alert, Oriented X3, Cooperative, No Acute Distress Other Physical Findings: General - well developed, well nourished elderly woman in no acute distress HEENT - NCAT, EOMI, PERRL, anicteric sclera CVS - S1, S2 w/o m/g/r Resp - mild bilateral rhochi with scant expiratory wheezing, no obvious crackles GI - Soft, nontender, nondistended, bowel sounds intact Neuro - Awake and Alert, CN II - XII grossly intact Ext - normal pulses, no cyanosis/clubbing/edema Current Medications: Current Medications Sig/Cristhian Start time Last Medication Dose Route Stop Time Status Admin Acetaminophen 650 MG Q6P PRN 05/04 1245 AC PO Alprazolam 0.5 MG Q12P PRN 05/04 1230 AC 05/05 PO 05/11 1229 0846 Aspirin Buffered 81 MG DAILY 05/05 1000 AC 05/05 PO 0849 Azithromycin 500 MG DAILY 05/04 1245 AC 05/05 Sodium Chloride 250 ML IV 0849 Benzocaine/Menthol 1 FERMIN Q8P PRN 05/05 0830 AC 05/05 PO 1029 Benzonatate 100 MG ONCE ONE 05/04 2044 DC 05/04 PO 05/04 Ceftriaxone Sodium 0 .STK-MED ONE 05/04 1342 DC .ROUTE Ceftriaxone Sodium 1,000 MG DAILY 05/04 1234 AC 05/05 IV 0851 Furosemide 20 MG 05/07 1000 AC PO Guaifenesin 600 MG Q12 05/05 1000 AC 05/05 PO 1029 Ibuprofen 600 MG Q6P PRN 05/04 1245 DC PO Melatonin 5 MG ONCE ONE 05/04 2044 DC 05/04 PO 05/04 Metoprolol Tartrate 50 MG BID 05/04 220 AC 05/05 PO 0848 Oxycodone/ 1 TAB Q6P PRN 05/04 1245 AC Acetaminophen PO Quetiapine Fumarate 50 MG QPM 05/04 220 AC 05/04 PO 1850 Last 24 Hrs of Lab/Benson Results Last 24 Hrs of Labs/Mics: Laboratory Tests 05/05/16 0645: Anion Gap 10, Estimated GFR > 60, BUN/Creatinine Ratio 22.5, PT 45.5 *H, INR 4.40 *H, CBC w Diff NO MAN DIFF REQ, RBC 5.07, MCV 84.2, MCH 27.7, RDW 15.5 H, MPV 10.8 H, Gran % 53.6, Lymphocytes % 37.2, Monocytes % 8.7, Eosinophils % 0.1 , Basophils % 0.4, Absolute Granulocytes 4.3, Absolute Lymphocytes 3.0, Absolute Monocytes 0.7 H, Absolute Eosinophils 0, Absolute Basophils 0, PUBS MCHC 33.0 05/04/16 1550: Urinalysis LIGHT H, Urine Color YEL, Urine Clarity CLEAR, Urine pH 7.0, Ur Specific Kelly 1.010, Urine Protein NEG, Urine Ketones NEG, Urine Nitrite NEG, Urine Bilirubin NEG, Urine Urobilinogen 0.2, Ur Leukocyte Esterase SMALL H, Ur Microscopic SEDIMENT EXAMINED, Urine WBC 1-3 H, Ur Epithelial Cells MOD H, Urine Hemoglobin NEG, Urine Glucose NEG Microbiology 05/04 1550 URINE ROUT: Legionella Antigen - COMP 05/04 1550 URINE ROUT: Streptococcus pneumoniae Antigen (M - COMP 05/04 1333 NASOPHARYN: Influenza Virus A & B Rapid Smear - COMP 05/04 1327 BLOOD: Blood Culture - RECD 05/04 1301 BLOOD: Blood Culture - RECD 05/04 1231 LOWER RESP: Respiratory Culture - COLB 05/04 1231 LOWER RESP: Gram Stain - COLB Assessment/Plan Assessment: Patient remains comfortable on room air saturating 95%. She is clinically improving with intravenous antibiotics. Azithromycin and Ceftriaxone were discontinued, oral Ceftin was started. Prednisone was reduced to 40mg starting tomorrow, taper in 5 days. Symbicort started. Physical therapy assessment determined that patient is independent and would be appropriate for discharge on home self care when medically stable. Acute Hypoxic Respiratory Failure / Possible COPD Exacerbation Patient denies a history of any pulmonary disease or preexisting COPD. She does not use home oxygen. Chest x-ray is suggestivie of underlying COPD without evidence of an acute intrathroacic process. CT chest noted the additional finding of a 3mm KARLA pulmonary nodule with an enlarged heart. Patient was seen twice in the ED over the two weeks prior to admission for wheezing, productive cough, and congestion for which she was given prednisone and zithromax. is sick with pneumonia. Patient was reported hypoxic to 88% on room air in the ED. She received one dose of intavenous steroids in the ED. Strep/Legionella/ Influenza negative. -General medicine -Supplemental oxygen PRN, goal >92%, wean as tolerated -TRC with albuterol/ipratropium as needed -Azithromycin discontinued -Ceftriaxone discontinued -Ceftin 250mg PO BID started -Prednisone reduced to 40mg PO Daily -Mucinex 600mg PO Q12H -Symbicort 160 2 PUFF BID -Chloraseptic lozengees/Tessalon Caps -PT assessment: independent, home self care -Pulmonology Consult -F/U cultures & sensitivities History of Atrial Fibrillation / Flutter s/p Pacemaker with Supratherapeutic INR Patient of Dr. Plasencia & Dr. Grubbs. Patient takes coumadin for her history of atrial fibrillation/flutter. INR elevated most likely secondary to antibiotic use. -Monitor for signs of bleeding or hemodynamic instability -Daily INR, dose coumadin accordingly for goal 2.0-3.0 -Aspirin 81mg PO Daily -Cardiology consult Anxiety/Depression -Seroquel 50mg PO QPM -Alprazolam 0.5mg PO Q12H PRN - anxiety Diastolic Heart Failure-Lasix 20mg PO M// Hypertension-Metoprolol 50mg PO BID Pain plan- Acetaminophen Diet- Heart Healthy Diet DVT PPx-Anticoagulation Code Status-FULL CODE Problem List: 1. COPD exacerbation 2. Bronchitis 3. Hypoxia Pain Ratin Pain Location: None Pain Goal: Remain pain free Pain Plan: See assessment Tomorrow's Labs & Rationales: INR - on coumadin
--- NOTE | 2016-05-05 13:44 | Cons- Pulmonary ---
General Information and HPI Consulting Request Date of Consult: 05/05/16 Requested By: med team History of Present Illness: History of Present Illness: This is an 85-year-old lady with a past history significant for atrial fibrillation/flutter, diastolic heart failure, mitral valve prolapse status post valvulotomy and repair in 2009, biventricular pacemaker placement in 2011, hypertension, anxiety and depression that presents to the emergency room at the chief complaint of cough, tactile fevers and chills. Patient states that her has been diagnosed with pneumonia and she has been actively taking care of him. She presented to the emergency room 6 days ago and was sent home thinking this was a viral URI, subsequently she we presented to the emergency room beginning of this week and was given a Z-Julio and by mouth prednisone. States that her symptoms have not improved. Admits to tactile fevers, decreased by mouth intake, yellow sputum, cough and dyspnea on exertion. Denies any chest pain, orthopnea, paroxysmal nocturnal dyspnea. Allergies/Medications Allergies: Coded Allergies: No Known Allergies (05/04/16) Home Med List: Alprazolam 0.5 MG TABLET 1 TAB PO BIDP PRN ANXIETY (Reported) Ascorbic Acid (Vitamin C) 1,000 MG TABLET 1 TAB PO DAILY SUPPLEMENT (Reported ) Aspirin (Ecotrin*) 81 MG TABLET.DR 1 TAB PO DAILY HEART HEALTH (Reported) Cholecalciferol (Vitamin D3) (Vitamin D3) 400 UNIT TABLET 1 TAB PO DAILY SUPPLEMENT (Reported) Furosemide 20 MG TABLET 1 TAB PO Saturday WATER PILL (Reported) Guaifenesin/Dextromethorphan (Mucinex Dm ER 600-30 MG Tablet) 600 MG-30 MG TAB.ER.12H 1 TAB PO BIDP PRN COUGH/CONGESTION Metoprolol Tartrate (Lopressor) 50 MG TABLET 1 TAB PO BID BP (Reported) Multivit-Min/FA/Lycopen/Lutein (Centrum Silver Tablet) 0.4 MG-300 MCG-250 MCG TABLET 1 TAB PO DAILY SUPPLEMENT (Reported) Mears-3/Dha/Epa/Fish Oil (Fish Oil 500 MG Softgel) 60 MG-90 MG-500 MG CAPSULE 3 CAP PO DAILY SUPPLEMENT (Reported) Quetiapine Fumarate 50 MG TABLET 1 TAB PO QPM DEPRESSION (Reported) Vitamin B Complex & Vit C No.3 (Balanced B Complex-Vit C) 15-10-300 TABLET.ER 1 TAB PO DAILY SUPPLEMENT (Reported) Vitamin E (Dl,Tocopheryl Acet) (Vitamin E) 400 UNIT CAPSULE 1 CAP PO DAILY SUPPLEMENT (Reported) Warfarin Sodium (Coumadin) 2 MG TABLET 1 TAB PO 1700 BLOOD THINNER (Reported) ZINC (Zinc Chelated) 50 MG TABLET 1 TAB PO DAILY SUPPLEMENT (Reported) Review of Systems Review of Systems Constitutional: Reports: see HPI. Past History Travel History Traveled to [place] past 21 day No Medical History Blood Transfusion Hx: No Neurological: NONE EENT: NONE Cardiovascular: AFIB, PACEMAKER, MITRAL VALVE PROLAPSE Respiratory: NONE Gastrointestinal: NONE Hepatic: NONE Renal: NONE Musculoskeletal: NONE Psychiatric: anxiety Endocrine: NONE Blood Disorders: NONE Cancer(s): NONE DIRECTOR OF CLINICAL APPLICATIONS/Reproductive: NONE Surgical History Surgical History: hernia repair-inguinal, hysterectomy, PACEMAKER MITRAL VALVE PROLAPSE SX Psychosocial History Where Do You Live? Home Smoking Status: Former Smoker ETOH Use: denies use Illicit Drug Use: denies illicit drug use Functional Ability ADLs Independent: dressing, eating, toileting, bathing. IADLs Independent: shopping, housework, finances, food prep, telephone, transportation , medication admin. ECHO Results (as available) Date of last Echo 04/26/15 EF% 50 Exam & Diagnostic Data Last 24 Hrs of Vital Signs/I&O Vital Signs Date Time Temp Pulse Resp B/P Pulse O2 O2 Flow FiO2 Ox Delivery Rate 05/05 0848 130/78 05/05 0600 98.1 83 18 128/74 94 Room Air 05/04 2200 97.6 71 18 116/70 96 Room Air 05/04 2046 71 116/70 05/04 1508 95 Room Air 05/04 1508 98.1 77 18 146/90 95 Room Air Intake & Output 05/05 1600 05/05 0800 05/05 0000 Intake Total 150 800 Output Total 350 400 Balance -200 400 Intake, Oral 150 800 Number 0 Bowel Movements Output, Urine 350 400 Last 48 Hrs of Labs/Benson: Laboratory Tests 05/05/16 0645: Anion Gap 10, Estimated GFR > 60, BUN/Creatinine Ratio 22.5, PT 45.5 *H, INR 4.40 *H, CBC w Diff NO MAN DIFF REQ, RBC 5.07, MCV 84.2, MCH 27.7, RDW 15.5 H, MPV 10.8 H, Gran % 53.6, Lymphocytes % 37.2, Monocytes % 8.7, Eosinophils % 0.1 , Basophils % 0.4, Absolute Granulocytes 4.3, Absolute Lymphocytes 3.0, Absolute Monocytes 0.7 H, Absolute Eosinophils 0, Absolute Basophils 0, PUBS MCHC 33.0 05/04/16 1550: Urinalysis LIGHT H, Urine Color YEL, Urine Clarity CLEAR, Urine pH 7.0, Ur Specific [place] 1.010, Urine Protein NEG, Urine Ketones NEG, Urine Nitrite NEG, Urine Bilirubin NEG, Urine Urobilinogen 0.2, Ur Leukocyte Esterase SMALL H, Ur Microscopic SEDIMENT EXAMINED, Urine WBC 1-3 H, Ur Epithelial Cells MOD H, Urine Hemoglobin NEG, Urine Glucose NEG 05/04/16 0923: Anion Gap 11, Estimated GFR > 60, BUN/Creatinine Ratio 25.0, Glucose 121 H, Calcium 9.9, Total Bilirubin 0.5, AST 38 H, ALT 43, Alkaline Phosphatase 68, Troponin I < 0.01, Sap-V-Fzagbtkrcoy Pept 865 H, Total Protein 6.9, Albumin 4.1 , Globulin 2.8, Albumin/Globulin Ratio 1.5, PT 49.9 *H, INR 4.83 *H, CBC w Diff NO MAN DIFF REQ, RBC 5.13, MCV 83.0, MCH 28.1, RDW 15.1 H, MPV 10.0, Gran % 73.2, Lymphocytes % 22.4, Monocytes % 4.3, Eosinophils % 0, Basophils % 0.1, Absolute Granulocytes 3.6, Absolute Lymphocytes 1.1 L, Absolute Monocytes 0.2, Absolute Eosinophils 0, Absolute Basophils 0, PUBS MCHC 33.9 Microbiology 05/04 1549 URINE ROUT: Legionella Antigen - COMP 05/04 155 URINE ROUT: Streptococcus pneumoniae Antigen (M - COMP 05/04 1333 NASOPHARYN: Influenza Virus A & B Rapid Smear - COMP Assessment/Plan Impression/Plan: Physical Exam General Appearance Alert, Oriented X3, Cooperative HEENT Atraumatic, PERRLA, EOMI Neck Supple, No JVD Cardiovascular Normal S1, Normal S2, valve click appreciated, post ope changes on the chest, clean dry and well healed scar Lungs diffuse wheezing and ronchii Abdomen Normal Bowel Sounds, Soft, No Tenderness Neurological Normal Speech, Strength at 5/5 X4 Ext, Normal Tone, Sensation Intact, Cranial Nerves 3-12 NL Extremities No Clubbing, No Cyanosis SIGNIFICANT DATA SMA-7 unremarkable magnesium was adequate at the blood work reviewed white count 7.9 after prednisone with no significant left shift INR was elevated influenza negative so far cultures have been unremarkable CT scan of the chest done without contrast showed there was no consolidation or pneumonia no lung nodules there was one 3 mm indeterminate nodule. Has very mild centrilobular emphysema mild scarring pacemaker leads were noted diffuse osteopenia previous sternotomy and large heart. No significant intrathoracic process. IMPRESSION This is a lady with significant history of previous mitral valve repair and recurrent atrial fibrillation status post maze, biventricular pacer, recent EF of 50-55%, mild pulmonary hypertension, previous mitral valve surgery with very mild mitral stenosis now has * Acute tracheobronchitis * Clinical signs and symptoms suggestive of mild tracheobronchomalacia which is causing both inspiratory and expiratory wheezing no significant evidence suggestive of asthma * Very mild emphysema with mild COPD with no significant evidence suggestive of severe COPD exacerbation * History of atrial fibrillation with supratherapeutic INR * Significant anxiety and depression which is also playing a component * Previous history of hypertension on high-dose metoprolol should also contributing to her wheezing Recommendation * Reduce her prednisone to 40 and wean off in the next 5 days * Continue her current medications * Switch her to by mouth Ceftin 250 mg by mouth twice a day after today * Start her on Symbicort 162 puffs twice a day * Increase activity * Consider reducing her metoprolol to 37-1/2 mg twice a day if she continues to wheeze * Patient is relatively stable probably can be discharged tomorrow with outpatient follow-up with me Consult Acknowledgment - Thank you for your consult request.
[2016-05-05 14:45] VITALS: BP 120/70
[2016-05-05 22:40] VITALS: BP 108/70
[2016-05-06 06:18] VITALS: BP 140/78
[2016-05-06 07:42] LABS: PT 32.1 SEC (9.4-12.5)
--- NOTE | 2016-05-06 08:31 | PN- Att Addend ---
Attending Addendum Attending Brief Note Patient seen and examined. Patient wants her Xanax 3 times a day when necessary. She says she takes it 3 times a day at home. I ordered it as such. Appreciate pulmonary eval. Dr Acevedo feels that a big part of this is anxiety. She has mild COPD with mild centrilobular emphysema and we have her now on by mouth Ceftin and by mouth prednisone with the plan for a very quick prednisone taper per pulmonary. She has A. fib with mitral valve repair and Maze procedure and her INR is elevated secondary to the antibiotics. Will follow-up today. Will follow-up with pulmonary and cardiac as to whether we need to decrease the dose of metoprolol.
--- NOTE | 2016-05-06 08:44 | PN- Housestaff ---
Subjective Follow-up For: Acute Hypoxic Respiratory Failure COPD Exacerbation Acute bronchitis Subjective: Patient seen and examined. She seen sitting upright in bed resting comfortably. She appears to be in no acute distress. She reports with a persistent cough and denies any new subjective complaints. She slept well last night and is wary about potentially being discharged today, however understands the plan in place. Additionally she denies any headache, fever, chills, chest pain, palpitations, worsening shortness of breath, productive cough, nausea, vomiting, diarrhea. Events reported. Review of Systems Constitutional: Reports: see HPI. Objective Last 24 Hrs of Vital Signs/I&O Vital Signs Date Time Temp Pulse Resp B/P Pulse O2 O2 Flow FiO2 Ox Delivery Rate 05/06 1026 78 16 130/70 05/06 0940 96 Room Air 05/06 0618 98.2 100 20 140/78 95 Room Air 05/06 0000 Room Air 05/05 2240 97.8 80 24 108/70 98 Room Air 05/05 2011 82 132/70 05/05 1840 97 Room Air 05/05 1600 Room Air 05/05 1445 97.9 85 24 120/70 95 05/05 1348 Room Air 05/05 1344 96 Room Air Intake & Output 05/06 1600 05/06 0800 05/06 0000 Intake Total 200 100 Output Total Balance 200 100 Intake, Oral 200 100 Physical Exam General Appearance: Alert, Oriented X3, Cooperative, No Acute Distress Other Physical Findings: General - well developed, well nourished elderly woman in no acute distress HEENT - NCAT, EOMI, PERRL, anicteric sclera CVS - S1, S2 w/o m/g/r Resp -diminished airflow bilaterally, scant rhonchi/wheezing, no crackles GI - Soft, nontender, nondistended, bowel sounds intact Neuro - Awake and Alert, CN II - XII grossly intact Ext - normal pulses, no cyanosis/clubbing/edema Current Medications: Current Medications Sig/Cristhian Start time Last Medication Dose Route Stop Time Status Admin Acetaminophen 650 MG Q6P PRN 05/04 1245 AC PO Albuterol Sulfate 3 ML BID 05/05 2200 AC 05/06 INH 0937 Alprazolam 0.5 MG Q8P PRN 05/06 0830 AC PO 05/13 0815 Alprazolam 0.5 MG ONCE ONE 05/06 0500 DC 05/06 PO 05/06 0501 0452 Alprazolam 0.5 MG Q12P PRN 05/04 1230 DC 05/05 PO 05/11 1229 2004 Aspirin Buffered 81 MG DAILY 05/05 1000 AC 05/06 PO 1026 Azithromycin 500 MG DAILY 05/04 1245 DC 05/05 Sodium Chloride 250 ML IV 0849 Benzocaine/Menthol 1 FERMIN Q8P PRN 05/05 0830 AC 05/05 PO 1029 Budesonide/ 2 PUF BID 05/05 2200 AC 05/06 Formoterol Fumarate INH 1027 Ceftriaxone Sodium 1,000 MG DAILY 05/04 1234 DC 05/05 IV 0851 Cefuroxime Sodium 250 MG Q12 05/06 1000 AC 05/06 PO 1026 Furosemide 20 MG 05/07 1000 AC PO Guaifenesin 600 MG Q12 05/05 1000 AC 05/06 PO 1026 Metoprolol Tartrate 37.5 MG BID 05/06 2200 AC PO Metoprolol Tartrate 50 MG BID 05/04 2200 DC 05/06 PO 1026 Oxycodone/ 1 TAB Q6P PRN 05/04 1245 AC Acetaminophen PO Prednisone 40 MG DAILY 05/06 1000 AC 05/06 PO 1026 Prednisone 60 MG DAILY 05/05 1233 DC 05/05 PO 1400 Quetiapine Fumarate 50 MG QPM 05/04 2200 AC 05/05 PO 2004 Last 24 Hrs of Lab/Benson Results Last 24 Hrs of Labs/Mics: Laboratory Tests 05/06/16 0644: PT 32.1 H, INR 3.09 H Assessment/Plan Assessment: Patient has clinically improving acute bronchitis while on products and steroids. She is to be discharged home today with a 7 day total course of oral Ceftin and a 4 day prednisone Taper. Her metoprolol was reduced to 37.5 mg by mouth twice a day, she is to follow-up with Dr. Plasencia in regards to this medication change. She is continued on Symbicort and is to follow-up with Dr. Acevedo within the next 2 weeks for further assessment of her newly diagnosed COPD. Acute Hypoxic Respiratory Failure / Possible COPD Exacerbation Patient denies a history of any pulmonary disease or preexisting COPD. She does not use home oxygen. Chest x-ray is suggestivie of underlying COPD without evidence of an acute intrathroacic process. CT chest noted the additional finding of a 3mm KARLA pulmonary nodule with an enlarged heart. Patient was seen twice in the ED over the two weeks prior to admission for wheezing, productive cough, and congestion for which she was given prednisone and zithromax. is sick with pneumonia. Patient was reported hypoxic to 88% on room air in the ED. She received one dose of intavenous steroids in the ED. Strep/Legionella/ Influenza negative. -General medicine -Supplemental oxygen PRN, goal >92%, wean as tolerated -TRC with albuterol/ipratropium as needed -Ceftin 250mg PO BID started -Prednisone reduced to 40mg PO Daily -Mucinex 600mg PO Q12H -Symbicort 160 2 PUFF BID -Chloraseptic lozengees/Tessalon Caps -PT assessment: independent, home self care -Pulmonology Consult -F/U cultures & sensitivities History of Atrial Fibrillation / Flutter s/p Pacemaker with Supratherapeutic INR Patient of Dr. Plasencia & Dr. Grubbs. Patient takes coumadin for her history of atrial fibrillation/flutter. INR elevated most likely secondary to antibiotic use. -Monitor for signs of bleeding or hemodynamic instability -Daily INR, dose coumadin accordingly for goal 2.0-3.0 -Aspirin 81mg PO Daily -Cardiology consult Anxiety/Depression -Seroquel 50mg PO QPM -Alprazolam 0.5mg PO Q12H PRN - anxiety Diastolic Heart Failure-Lasix 20mg PO M// Hypertension-Metoprolol 50mg PO BID Pain plan- Acetaminophen Diet- Heart Healthy Diet DVT PPx-Anticoagulation Code Status-FULL CODE Problem List: 1. Bronchitis Pain Ratin Pain Location: None Pain Goal: Remain pain free Pain Plan: See assessment Tomorrow's Labs & Rationales: None
[2016-05-06 10:26] VITALS: BP 130/70
[2016-05-06 11:34] LABS: PT 45.5 SEC (9.4-12.5)
--- NOTE | 2016-05-06 12:36 | PN- Pulmonary ---
Subjective HPI/Critical Care Issues: Patient remains comfortable on room air saturating 95%. She is clinically improving with intravenous antibiotics. Azithromycin and Ceftriaxone were discontinued, oral Ceftin was started. Prednisone was reduced to 40mg starting tomorrow, taper in 5 days. Symbicort started. Physical therapy assessment determined that patient is independent and would be appropriate for discharge on home self care when medically stable. Review of Systems: Eyes no blurred or double vision Ears no deafness or ringing Nose and throat no recurrent sinusitis Lungs per history of present illness Heart per history of present illness Abdomen no nausea vomiting Musculoskeletal occasional muscle and joint pains Psych no anxiety or depression Neuro without recurrent headache or seizures Endocrine no heat or cold intolerance Objective Current Medications: Current Medications Sig/Cristhian Start time Last Medication Dose Route Stop Time Status Admin Acetaminophen 650 MG Q6P PRN 05/04 1245 AC PO Albuterol Sulfate 3 ML BID 05/05 2200 AC 05/06 INH 0937 Alprazolam 0.5 MG Q8P PRN 05/06 0830 AC PO 05/13 0815 Alprazolam 0.5 MG ONCE ONE 05/06 0500 DC 05/06 PO 05/06 0501 0452 Alprazolam 0.5 MG Q12P PRN 05/04 1230 DC 05/05 PO 05/11 1229 2004 Aspirin Buffered 81 MG DAILY 05/05 1000 AC 05/06 PO 1026 Azithromycin 500 MG DAILY 05/04 1245 DC 05/05 Sodium Chloride 250 ML IV 0849 Benzocaine/Menthol 1 FERMIN Q8P PRN 05/05 0830 AC 05/05 PO 1029 Budesonide/ 2 PUF BID 05/050 AC 05/06 Formoterol Fumarate INH 1027 Ceftriaxone Sodium 1,000 MG DAILY 05/04 1234 DC 05/05 IV 0851 Cefuroxime Sodium 250 MG Q12 05/06 1000 AC 05/06 PO 1026 Furosemide 20 MG 05/07 1000 AC PO Guaifenesin 600 MG Q12 05/05 1000 AC 05/06 PO 1026 Metoprolol Tartrate 50 MG BID 05/04 2200 AC 05/06 PO 1026 Oxycodone/ 1 TAB Q6P PRN 05/04 1245 AC Acetaminophen PO Prednisone 40 MG DAILY 05/06 1000 AC 05/06 PO 1026 Prednisone 60 MG DAILY 05/05 1233 DC 05/05 PO 1400 Quetiapine Fumarate 50 MG QPM 05/040 AC 05/05 PO 2003 Vital Signs & I&O Last 24 Hrs of Vitals and I&O: Vital Signs Date Time Temp Pulse Resp B/P Pulse O2 O2 Flow FiO2 Ox Delivery Rate 05/06 1026 78 16 130/70 05/06 0940 96 Room Air 05/06 0618 98.2 100 20 140/78 95 Room Air 05/06 0000 Room Air 05/05 2240 97.8 80 24 108/70 98 Room Air 05/05 2011 82 132/70 05/05 1840 97 Room Air 05/05 1600 Room Air 05/05 1445 97.9 85 24 120/70 95 05/05 1348 Room Air 05/05 1344 96 Room Air Intake & Output 05/06 1600 05/06 0800 05/06 0000 Intake Total 200 100 Output Total Balance 200 100 Intake, Oral 200 100 Impression/Plan Impression/Plan Impression/Plan: Physical Exam General Appearance Alert, Oriented X3, Cooperative HEENT Atraumatic, PERRLA, EOMI Neck Supple, No JVD Cardiovascular Normal S1, Normal S2, valve click appreciated, post ope changes on the chest, clean dry and well healed scar Lungs diffuse wheezing and ronchii Abdomen Normal Bowel Sounds, Soft, No Tenderness Neurological Normal Speech, Strength at 5/5 X4 Ext, Normal Tone, Sensation Intact, Cranial Nerves 3-12 NL Extremities No Clubbing, No Cyanosis SIGNIFICANT DATA CT scan of the chest done without contrast showed there was no consolidation or pneumonia no lung nodules there was one 3 mm indeterminate nodule. Has very mild centrilobular emphysema mild scarring pacemaker leads were noted diffuse osteopenia previous sternotomy and large heart. No significant intrathoracic process. IMPRESSION This is a lady with significant history of previous mitral valve repair and recurrent atrial fibrillation status post maze, biventricular pacer, recent EF of 50-55%, mild pulmonary hypertension, previous mitral valve surgery with very mild mitral stenosis now has * Acute tracheobronchitis * Clinical signs and symptoms suggestive of mild tracheobronchomalacia which is causing both inspiratory and expiratory wheezing no significant evidence suggestive of asthma * Very mild emphysema with mild COPD with no significant evidence suggestive of severe COPD exacerbation * History of atrial fibrillation with supratherapeutic INR * Significant anxiety and depression which is also playing a component * Previous history of hypertension on high-dose metoprolol should also contributing to her wheezing Recommendation * Prednisone wean in the next 5 days * Continue her current medications * Ceftin 250 mg by mouth twice a day for seven days * Symbicort 162 puffs twice a day * Increase activity * Consider reducing her metoprolol to 37-1/2 mg twice a day * Patient is relatively stable probably can be discharged and should follow up with me upon dc
[2016-05-06] MEDS ORDERED: METOPROLOL TART25 M1 PO (12:51)
[2016-05-06] MEDS ORDERED: CEFUROXIME250 M1 PO (12:51)
[2016-05-06] MEDS ORDERED: PREDNISONE20 M1 PO (12:51)
--- NOTE | 2016-05-06 13:02 | Patient Discharge Instructions ---
Discharge Instructions General Discharge Information Special Instructions: Take Ceftin as directed. Take one dose starting tonight and one tablet by mouth twice a day starting tomorrow. Do not take coumadin today. Start your previously scheduled coumadin regimen tomorrow. Take prednisone two tablets by mouth daily for four days starting tomorrow. Stop your previous dose of Metoprolol. Start taking 37.5mg one tablet by mouth twice a day. Follow up with Dr. Plasencia and Dr. Acevedo within two weeks of discharge. Acute Coronary Syndrome Inclusion Criteria At DC or during hospital stay patient has or had the following: ACS DIAGNOSIS No Discharge Core Measures Meds if any: Prescribed or Continued at Discharge Meds if any: NOT Prescribed or Continued at Discharge Congestive Heart Failure Inclusion Criteria At DC or during hospital stay patient has or had the following: CHF DIAGNOSIS No Discharge Core Measures Meds if any: Prescribed or Continued at Discharge Meds if any: NOT Prescribed or Continued at Discharge Cerebrovascular accident Inclusion Criteria At DC or during hospital stay patient has or had the following: CVA/TIA Diagnosis No Discharge Core Measures Meds if any: Prescribed or Continued at Discharge Meds if any: NOT Prescribed or Continued at Discharge Venous thromboembolism Inclusion Criteria VTE Diagnosis No VTE Type NONE VTE Confirmed by (Test) NONE Discharge Core Measures - Per Current guidelines, there needs to be overlap - treatment for the first 5 days of Warfarin therapy. - If discharged on Warfarin prior to 5 days of - overlap therapy, the patient will need to be - assessed for post discharge needs including - *Post discharge parental anticoagulation - *Warfarin and/or parental anticoagulation education - *Follow up date to check INR post discharge At least 5 days overlap therapy as Inpatient No Meds if any: Prescribed or Continued at Discharge Note: Overlap Therapy is Warfarin and Anticoagulant Meds if any: NOT Prescribed or Continued at Discharge
[2016-05-06] MEDS ORDERED: SYMBICORT 16010.2 GM INH (13:09)
--- NOTE | 2016-05-09 10:13 | Discharge Summary ---
Visit Information Visit Dates Admission Date: 05/04/16 Discharge Date: 05/06/16 Hospital Course Course Attending Physician: ANASTASIYA JUNG M.D Primary Care Physician: PRISCILLA COHN MD Hospital Course: 85 year old woman with significant past medical history of atrial fibrillation/ flutter, diastolic heart failure, and MVP s/p valvulotomy, biventricular pacemaker (2011), hypertension, and anxiety/depression seen for evaluation of cough, fever, and chills. 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 She went to the [facility] ED for evaluation 6 days prior to admission for complaints of an upper respiratory infection for which she was discharged to home with z-pack and course of steroids. She reports persistence of her symptoms now associated with a yellow productive cough, decreased oral intake, and dyspnea on exertion. ED Course: -Vitals: Temp 96.9-97.8, HR 73-86, RR 18-20, BP 150-162/72-98, O2 93-96% on Room Air -Significant Labs: WBC 4.9, Hgb/Hct 14.4/42.6, BUN/Cr 15/0.6, Troponin <0.01, PT 49.9, INR 4.83, -Studies: EKG HR 149, QTs 178, QTc 536, Ventricular Paced Complexes, CXR postoperative changes with underlying COPD without evidence of acute intrathoracic process -Interventions: Solumedrol 60mg IV, Ipratropium INH Acute Hypoxic Respiratory Failure / Acute Tracheobronchitis / New COPD Patient was saturating 88% on room air after respiratory treatments in the ED. CXR was suggestive of underlying COPD with no reported history. Patient was admitted to the general medicine floor for further evaluation. She was continued on supplemental oxygen and breathing treatments as needed. SHe was maintained on intravenous antibiotics and steroids before begin concerted to oral formulations prior to discharge. She was started on Mucinex and Sympicort during admission. Pulmonolgy consult was placed, patient is to follow up as out patient for further evaluation. CT chext demonstrated underlying centrilobular emphysema with a 3mm left upper lobe pulmonary nodule and enlarged heart. Strep/Legionella /Influenza were negative and blood cultures remained no growth to date. History of Atrial Fibrillation / Flutter s/p Pacemaker with Supratherapeutic INR Patient of Dr. Plasencia & Dr. Grubbs. Patient takes coumadin for her history of atrial fibrillation/flutter. INR elevated most likely secondary to antibiotic use. Patient was held from coumadin for several days while INR remained supratherapeutic. She was continued on her previous coumadin schedule on discharge. Allergies: Coded Allergies: No Known Allergies (05/04/16) Significant Procedures: EXAM TYPE: RAD - XRY-CHEST XRAY, PA AND LATERAL IMPRESSION: There are postoperative changes with underlying COPD changes suggested without evidence of an acute intrathoracic process. EXAM TYPE: CAT - CT CHEST WO IV CONTRAST IMPRESSION: 1. No evidence of an acute intrathoracic process. 2. Indeterminate 3 mm left upper lobe pulmonary nodule. No highly suspicious pulmonary nodules are identified to suggest a primary malignancy. 3. The heart is enlarged with multiple pacer leads. Disposition Summary Disposition Principal Diagnosis: Acute Hypoxic Respiratory Failure Acute Tracheobronchitis Newly onset COPD Additional Diagnosis: Supratherapeutic INR Discharge Disposition: home or self care Discharge Instructions General Discharge Information Code Status: Full Code Patient's Diet: Heart Healthy Diet Patient's Activity: Return to full activity as tolerated Follow-Up Instructions/Appts: Take Ceftin as directed. Take one dose starting tonight and one tablet by mouth twice a day starting tomorrow. Do not take coumadin today. Start your previously scheduled coumadin regimen tomorrow. Take prednisone two tablets by mouth daily for four days starting tomorrow. Stop your previous dose of Metoprolol. Start taking 37.5mg one tablet by mouth twice a day. Follow up with Dr. Plasencia and Dr. Acevedo within two weeks of discharge. Medications at Discharge Discharge Medications: Stop taking the following medications: Metoprolol Tartrate (Lopressor) 50 MG TABLET ORAL TWICE DAILY Continue taking these medications: Warfarin Sodium (Coumadin) 2 MG TABLET 1 Tablet ORAL 5 PM Comments: NOT GIVEN WHILE IN HOSPITAL Quetiapine Fumarate (Quetiapine Fumarate) 50 MG TABLET 1 Tablet ORAL Every night Comments: Last Taken: 05/05/16 Time: 8PM Furosemide (Furosemide) 20 MG TABLET 1 Tablet ORAL SATURDAY, SATURDAY AND SATURDAY Comments: NOT GIVEN WHILE IN HOSPITAL Alprazolam (Alprazolam) 0.5 MG TABLET 1 Tablet ORAL 2 x Daily as needed as needed for ANXIETY Comments: Last Taken: 05/06/16 Time: 5am [place]-3/Dha/Epa/Fish Oil (Fish Oil 500 MG Softgel) 60 MG-90 MG-500 MG CAPSULE 3 Capsule ORAL DAILY Comments: NOT GIVEN WHILE IN HOSPITAL Multivit-Min/FA/Lycopen/Lutein (Centrum Silver Tablet) 0.4 MG-300 MCG-250 MCG TABLET 1 Tablet ORAL DAILY Comments: NOT GIVEN WHILE IN HOSPITAL Vitamin B Complex & Vit C No.3 (Balanced B Complex-Vit C) 15-10-300 TABLET.ER 1 Tablet ORAL DAILY Comments: NOT GIVEN WHILE IN HOSPITAL Ascorbic Acid (Vitamin C) 1,000 MG TABLET 1 Tablet ORAL DAILY Comments: NOT GIVEN WHILE IN HOSPITAL Cholecalciferol (Vitamin D3) (Vitamin D3) 400 UNIT TABLET 1 Tablet ORAL DAILY Comments: NOT GIVEN WHILE IN HOSPITAL Vitamin E (Dl,Tocopheryl Acet) (Vitamin E) 400 UNIT CAPSULE 1 Capsule ORAL DAILY Comments: NOT GIVEN WHILE IN HOSPITAL ZINC (Zinc Chelated) 50 MG TABLET 1 Tablet ORAL DAILY Comments: NOT GIVEN WHILE IN HOSPITAL Aspirin (Ecotrin*) 81 MG TABLET.DR 1 Tablet ORAL DAILY Comments: Last Taken: 05/06/16 Time: 10:30am Guaifenesin/Dextromethorphan (Mucinex Dm ER 600-30 MG Tablet) 600 MG-30 MG TAB.ER.12H 1 Tablet ORAL 2 x Daily as needed as needed for COUGH/CONGESTION Qty = 20 Comments: Last Taken: 05/06/16 Time: 10:30AM Start taking the following new medications: Cefuroxime Axetil (Cefuroxime) 250 MG TABLET 250 Milligram ORAL EVERY 12 HOURS Qty = 13 No Refills Comments: Last Taken: 05/06/16 Time: 10:30AM Metoprolol Tartrate (Metoprolol Tartrate) 25 MG TABLET 37.5 Milligram ORAL TWICE DAILY Qty = 45 No Refills Comments: 50MG DOSE GIVEN 05/06/16 AT 10:30 AM, REDUCE DOSE TO 37.5MG Prednisone (Prednisone) 20 MG TABLET 40 Milligram ORAL DAILY Qty = 8 No Refills Instructions: STARTING 05/07/16 Comments: Last Taken: 05/06/16 Time: 10:30AM Budesonide/Formoterol Fumarate (Symbicort 160-4.5 Mcg Inhaler) 160 MCG-4.5 MCG/ ACTUATION HFA.AER.AD 2 Puff Inhale through mouth TWICE DAILY Qty = 1 No Refills Comments: Last Taken: 05/06/16 Time: 10:30AM Copies To: JERAMY GARDNER,KATHLEEN Quiroga; SUKI GARDNER,PRISCILLA Quiroga
== END 2016-05-06 14:20 | DRG 190 ==
LOC: ENRESERVTM → CANRESERV → ENRESERVDT → ERH 08:17 → ENPENDDIS 12:28 → ERHI 12:28 → 2NA 12:28 → EDBEDREQ 12:52 → 2NA 14:28
PROVIDERS: Internal Medicine; Physician Assistant Surgical; Student in an Organized Health Care Education/Training Program; ADMIT Internal Medicine
DX: J44.0 Chronic obstructive pulmonary disease with (acute) lower respiratory infection (principal); J96.01 Acute respiratory failure with hypoxia; I50.30 Unspecified diastolic (congestive) heart failure; I48.91 Unspecified atrial fibrillation; J20.9 Acute bronchitis, unspecified; I10 Essential (primary) hypertension; F41.8 Other specified anxiety disorders; Z79.01 Long term (current) use of anticoagulants; R91.1 Solitary pulmonary nodule; Z95.0 Presence of cardiac pacemaker; Z87.891 Personal history of nicotine dependence
CPT/HCPCS: 2NAP; 81001; 82436; 87040; 87070; 87449; 87450; 87804; 87804-59; 93005; 93010; 96374; 97116-GO; 97161-GP; 97530-GO; J0456; J0696; J2930; J3490; J7040

== ENCOUNTER 2017-02-23 11:33 | Emergency (ER) | payer OTHER, MEDICARE ==
[~2017-02-23] VITALS: Ht 170.2 cm; Wt 72.6 kg
[~2017-02-23 11:33] MED LIST changes: +CEFUROXIME250 M1 PO; +METOPROLOL TART25 M1 PO; +SYMBICORT 16010.2 GM INH
--- NOTE | 2017-02-23 12:13 | ED MVC/FALL/TRAUMA COMPLAINT ---
History of Present Illness General Chief Complaint: Fall Stated Complaint: FALL, ?SPRAINED ANKLE Source: patient, old records Exam Limitations: no limitations Vital Signs & Intake/Output Vital Signs & Intake/Output Vital Signs Date Time Temp Pulse Resp B/P B/P Pulse O2 O2 Flow FiO2 Mean Ox Delivery Rate 02/23 1256 Room Air Room Air 02/23 1146 98.0 74 18 126/84 99 Room Air Allergies Coded Allergies: No Known Allergies (05/04/16) Reconcile Medications Alprazolam 0.5 MG TABLET 1 TAB PO BIDP PRN ANXIETY (Reported) Ascorbic Acid (Vitamin C) 1,000 MG TABLET 1 TAB PO DAILY SUPPLEMENT (Reported ) Aspirin (Ecotrin*) 81 MG TABLET.DR 1 TAB PO DAILY HEART HEALTH (Reported) Budesonide/Formoterol Fumarate (Symbicort 160-4.5 Mcg Inhaler) 160 MCG-4.5 MCG/ ACTUATION HFA.AER.AD 2 PUF INH BID COPD Cefuroxime Axetil (Cefuroxime) 250 MG TABLET 250 MG PO Q12 BRONCHITIS Cholecalciferol (Vitamin D3) (Vitamin D3) 400 UNIT TABLET 1 TAB PO DAILY SUPPLEMENT (Reported) Furosemide 20 MG TABLET 1 TAB PO Saturday WATER PILL (Reported) Guaifenesin/Dextromethorphan (Mucinex Dm ER 600-30 MG Tablet) 600 MG-30 MG TAB.ER.12H 1 TAB PO BIDP PRN COUGH/CONGESTION Hydrocodone/Acetaminophen (Hycet 7.5 MG-325 MG/15 Ml Soln) 7.5 MG-325 MG/15 ML SOLUTION 2.5 ML PO Q8 PRN PAIN Metoprolol Tartrate 25 MG TABLET 37.5 MG PO BID AFIB/FLUTTER Multivit-Min/FA/Lycopen/Lutein (Centrum Silver Tablet) 0.4 MG-300 MCG-250 MCG TABLET 1 TAB PO DAILY SUPPLEMENT (Reported) [place]-3/Dha/Epa/Fish Oil (Fish Oil 500 MG Softgel) 60 MG-90 MG-500 MG CAPSULE 3 CAP PO DAILY SUPPLEMENT (Reported) Prednisone 20 MG TABLET 40 MG PO DAILY COPD STARTING 05/07/16 Quetiapine Fumarate 50 MG TABLET 1 TAB PO QPM DEPRESSION (Reported) Vitamin B Complex & Vit C No.3 (Balanced B Complex-Vit C) 15-10-300 TABLET.ER 1 TAB PO DAILY SUPPLEMENT (Reported) Vitamin E (Dl,Tocopheryl Acet) (Vitamin E) 400 UNIT CAPSULE 1 CAP PO DAILY SUPPLEMENT (Reported) Warfarin Sodium (Coumadin) 2 MG TABLET 1 TAB PO 1700 BLOOD THINNER (Reported) ZINC (Zinc Chelated) 50 MG TABLET 1 TAB PO DAILY SUPPLEMENT (Reported) Triage Note: PT TO ED FOR L ANKLE PAIN, STATING SHE TRIPPED YESTERDAY WHILE WEARING HIGH HEELS YESTERDAY AND TWISTED HER L ANKLE. PAIN ON PALPATION, +SENSATION. Triage Nurses Notes Reviewed? yes Onset: Abrupt Duration: day(s): (2) Timing: multiple episodes today Severity: mild, moderate Method of Injury: TWISTED Modifying Factors: Worsens With: movement. Associated Symptoms: trouble walking, SWELLING HPI: This is an 86-year-old female with history of osteoporosis who presents to the ER with chief complaint of left ankle pain and swelling. She states that she was trying get a lengthy for her dog when she stood up and her foot got twisted. She states she fell on the floor but didn't read. Since that time she's had some pain and swelling of her left ankle. She states that she had to use a walker to walk this morning but had a hard time putting it down. She took Tylenol last dose was this morning. Past History Travel History Traveled to [place] past 21 day No Medical History Any Pertinent Medical History? 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 No Review of Systems Review of Systems Constitutional: Denies: chills, fever. Eyes: Reports: no symptoms. Ears, Nose, Throat, Mouth: Reports: no symptoms. Respiratory: Denies: cough, short of breath. Cardiovascular: Denies: chest pain. Gastrointestinal/Abdominal: Denies: abdominal pain, nausea, vomiting. Genitourinary: Reports: no symptoms. Musculoskeletal: Reports: joint pain, joint swelling, muscle pain. Skin: Reports: no symptoms. Neurological/Psychological: Denies: anxiety. All Other Systems: Reviewed and Negative Physical Exam Physical Exam General Appearance: well developed/nourished, alert, awake, anxious, mild distress Head: atraumatic, normal appearance Eyes: Bilateral: normal appearance, PERRL, EOMI. Respiratory: normal breath sounds, chest non-tender, no respiratory distress Cardiovascular: regular rate/rhythm Peripheral Pulses: 2+ radial (R), 2+ radial (L) Gastrointestinal: normal bowel sounds, soft, non-tender Extremities: normal range of motion, PAIN, TENDERNESS LEFT LATERAL MALLEOLUS, LEFT 5TH METATARSAL Neurologic/Psych: no motor/sensory deficits, awake, alert, oriented x 3 Skin: intact, normal color, warm/dry Core Measures ACS in differential dx? No CVA/TIA Diagnosis No Sepsis Present: No Sepsis Focused Exam Completed? No Progress Differential Diagnosis: SPRAIN, FRACTURE Plan of Care: Orders Procedure Date/time Status Durable Medical Equipment 02/23 1358 Active XRAY CONFIRMS BASE OF 5TH METATARSAL FX. TYLENOL ADMINISTERD. BOOT PLACED, AMBULATORY WITH WALKER. CASE MANAGEMENT CONSULTED TO PROVIDE WALKER FOR DISCHARGE HOME. WILL FOLLOW UP WITH ORTHO. Diagnostic Imaging: Viewed by Me: Radiology Read. Discussed w/RAD: Radiology Read. Radiology Impression: PATIENT: YOKO HUGHES PRESENT AGE: 86 PATIENT ACCOUNT NO: [id number] : 29 LOCATION: [facility] ORDERING PHYSICIAN: Annmarie Hernadez MD SERVICE DATE: 02/23/17 EXAM TYPE: RAD - XRY-ANKLE 3 OR MORE VIEWS L EXAMINATION: XR ANKLE, LEFT CLINICAL INFORMATION: Left ankle pain and swelling since fall/trauma yesterday. COMPARISON: Left foot 01/23/2015. TECHNIQUE: AP, lateral, and mortise views of the left ankle. FINDINGS: There is soft tissue swelling, greater on lateral side. The AP view suggests defect posterior lateral base fifth metatarsal, new from prior study 2014. Recommend correlation with patient's symptoms and clinical exam to confirm acute fracture. The malleoli appear intact and the ankle mortise is symmetric. There is no ankle fracture or dislocation. No visible talar dome osteochondral lesion. The retrocalcaneal recess is preserved. There are posterior and plantar calcaneal spurs. IMPRESSION: 1. Suspect nondisplaced fracture base fifth metatarsal. Recommend correlation with clinical findings to confirm acute injury. 2. No ankle fracture or dislocation. Calcaneal spurs. DICTATED BY: Xavier Johnson MD DATE/TIME DICTATED:02/23/171344 QUALITY MANAGEMENT NURSE:JESSENIA DATE/TIME TRANSCRIBED:02/23/171344 CONFIDENTIAL, DO NOT COPY WITHOUT APPROPRIATE AUTHORIZATION. <Electronically signed in Other Vendor System> SIGNED BY: Xavier Johnson MD 02/23/17 1357 Departure Departure Time of Disposition: 1425 Disposition: HOME OR SELF CARE Condition: Stable Clinical Impression Primary Impression: Metatarsal fracture Referrals: Ziggy GARDNER,Alex Bernard MD,Gilbert Quiroga (PCP/Family) Additional Instructions: TAKE THE LIQUID VICODIN NEEDED FOR PAIN IF YOU TAKE THE VICODIN DO NOT TAKE ANY EXTRA TYLENOL FOLLOW UP WITH THE CREDIT FRONT OFFICE DEVELOPER LISTED USE THE WALKING BOOT AND WALKER DIRECTED RETURN TO THE ER FOR ANY CHANGING OR WORSENING SYMPTOMS Departure Forms: Customer Survey General Discharge Information Prescriptions: Current Visit Scripts Hydrocodone/Acetaminophen (Hycet 7.5 MG-325 MG/15 Ml Soln) 2.5 ML PO Q8 PRN PAIN #20 ML Procedures Splinting Location: RIGHT ORTHO BOOT
--- NOTE | 2017-02-23 13:54 | RADIOLOGY REPORT ---
EXAMINATION: XR ANKLE, LEFT CLINICAL INFORMATION: Left ankle pain and swelling since fall/trauma yesterday. COMPARISON: Left foot 01/23/2015. TECHNIQUE: AP, lateral, and mortise views of the left ankle. FINDINGS: There is soft tissue swelling, greater on lateral side. The AP view suggests defect posterior lateral base fifth metatarsal, new from prior study 2014. Recommend correlation with patient's symptoms and clinical exam to confirm acute fracture. The malleoli appear intact and the ankle mortise is symmetric. There is no ankle fracture or dislocation. No visible talar dome osteochondral lesion. The retrocalcaneal recess is preserved. There are posterior and plantar calcaneal spurs. IMPRESSION: 1. Suspect nondisplaced fracture base fifth metatarsal. Recommend correlation with clinical findings to confirm acute injury. 2. No ankle fracture or dislocation. Calcaneal spurs.
[2017-02-23] MEDS ORDERED: OXYCODONE H5 MG/5 M2 PO (14:25)
[2017-02-23] MEDS ORDERED: HYCET 7.5 MG-3473 ML PO (14:35)
[2017-02-23 14:57] VITALS: BP 125/80
== END 2017-02-23 15:09 ==
LOC: ERH 11:33
DX: S92.352A Displaced fracture of fifth metatarsal bone, left foot, initial encounter for closed fracture (principal); X58.XXXA Exposure to other specified factors, initial encounter; Y92.9 Unspecified place or not applicable; Y93.9 Activity, unspecified
CPT/HCPCS: 73610-LT

== ENCOUNTER 2017-10-26 14:57 | Emergency (ER) | payer OTHER, MEDICARE ==
[~2017-10-26] VITALS: Ht 170.2 cm; Wt 69.4 kg
[~2017-10-26 14:57] MED LIST changes: +ADULT ROBITUSS118 ML PO; +HYCET 7.5 MG-3473 ML PO; +MEDROL4 M2 PO; +METOPROLOL TART50 M1 PO; +OXYCODONE H5 MG/5 M2 PO; +SEROQUEL50 M1 PO
--- NOTE | 2017-10-26 15:15 | ED GENERAL ADULT ---
History of Present Illness General Chief Complaint: Low Back Pain/Injury Stated Complaint: "I TWISTED MY BACK" Source: patient Exam Limitations: no limitations Allergies Coded Allergies: No Known Allergies (05/04/16) Reconcile Medications Alprazolam 0.5 MG TABLET 1 TAB PO BIDP PRN ANXIETY (Reported) Furosemide 20 MG TABLET 1 TAB PO Saturday WATER PILL (Reported) Guaifenesin/Dextromethorphan (Adult Robitussin Peak Cold Liq) 100 MG-10 MG/5 ML LIQUID 10 ML PO TID PRN mucous Lidocaine (Lidoderm) 5 % ADH..PATCH 1 PAT TOP DAILY PRN pain may wear up to 12 hours Methylprednisolone. (Medrol) 4 MG TAB.DS.PK 1 DP PO AD back pain 6 on day 1 then reduce by one tablet daily until gone Methylprednisolone. 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 STATES ALL OF A SUDDEN SHE HAD SHOOTING PAINS IN HER LOWER BACK. PT HAS HX OF FALL A MONTH AGO. Triage Nurses Notes Reviewed? yes Onset: Abrupt Duration: day(s): Timing: CONSTANT HPI: 87-year-old female with a history of A. fib (on Coumadin, status post pacemaker) , and depression present lower back pain yesterday. Patient reports left lower back pain that radiates to the left lower extremity status post lifting heavy pizza pans yesterday. Denies fevers, IV drug use, saddle anesthesia, urinary/ bowel incontinence/retention, dysuria, urinary frequency/urgency. Has tried multiple [id number] medications without relief. (Vicenta TREVIZO,Ariadna) Vital Signs & Intake/Output Vital Signs & Intake/Output Vital Signs Date Time Temp Pulse Resp B/P B/P Pulse O2 O2 Flow FiO2 Mean Ox Delivery Rate 10/26 1836 136/80 10/26 1506 98.1 76 20 134/82 97 Room Air (Edna GARDNER,Tom Arrington) Past History Travel History Traveled to [place] past 21 day No Medical History Any Pertinent Medical History? 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 No (Ariadna Avina) Review of Systems Review of Systems Constitutional: Reports: no symptoms. EENTM: Reports: no symptoms. Respiratory: Reports: no symptoms. Cardiovascular: Reports: no symptoms. GI: Reports: no symptoms. Genitourinary: Reports: no symptoms. Musculoskeletal: Reports: see HPI. Skin: Reports: no symptoms. Neurological/Psychological: Reports: no symptoms. Hematologic/Endocrine: Reports: no symptoms. Immunologic/Allergic: Reports: no symptoms. All Other Systems: Reviewed and Negative (Ariadna Avina) Physical Exam Physical Exam General Appearance: well developed/nourished, no apparent distress, alert, awake Comments: Gen.: Well-nourished, well-developed, no acute distress. Head: Normocephalic, atraumatic. Eyes: Normal inspection bilaterally Ears: Normal inspection bilaterally Nose: Normal inspection Neck: Normal inspection Lungs: clear to auscultation bilaterally, normnal breath sounds Heart: regular rate and rhythm Abdomen: soft and non-tender Back: Normal inspection, mild tenderness to palpation over the left lower lumbar muscles, no midline tenderness to palpation, mild decrease in spinal range of motion Extremities: Normal inspection, bilateral lower extremities are neurovascularly intact Neurologic: alert and oriented x3, able to bear weight and ambulate with steady gait Skin: warm and dry Psychiatric: Normal mood and affect, no apparent delusions or hallucinations, behavior appropriate Core Measures ACS in differential dx? No CVA/TIA Diagnosis: No Sepsis Present: No Sepsis Focused Exam Completed? No (Ariadna Avina) Progress Differential Diagnoses I considered the following diagnoses in my evaluation of the patient: [MSK strain versus disc herniation versus lumbar radiculopathy, low concern for cauda equina versus epidural abscess] Plan of Care: Orders Procedure Date/time Status XRY-LUMBOSACRAL SPINE 4 VIEWS 10/26 1513 Active Current Medications Sig/Cristhian Start time Last Medication Dose Stop Time Status Admin Methylprednisolone 125 MG ONCE ONE 10/26 1515 AC (Solu Medrol) 10/26 1516 Oxycodone/ 1 TAB ONCE ONE 10/26 1515 AC Acetaminophen 10/26 151 (Percocet) CT scan IMPRESSION: No acute fracture or traumatic subluxation. Moderate to severe multilevel degenerative disc disease and facet arthrosis. No significant change. Patient reports good pain relief after Percocet and steroids. Will treat with Medrol Dosepak for her radiculopathy symptoms. Given Rx Percocet for pain. Counseled on supportive care and strict return precautions. Patient had called after discharged and asked that her prescription be resent to [facility]. I called [facility] to cancel the previous Percocet prescription. Initial ED EKG: none (Ariadna Avina) Departure Departure Disposition: HOME OR SELF CARE Condition: Stable Clinical Impression Primary Impression: Back pain Referrals: Joana GARDNER,Gilbert Quiroga (PCP/Family) Additional Instructions: Take Medrol Dosepak as prescribed. Use Percocet and Lidoderm patches as needed for pain. Follow-up with your primary care provider for reevaluation. Return to the emergency department for any new or worsening symptoms. Departure Forms: Customer Survey General Discharge Information Prescriptions: Current Visit Scripts Lidocaine (Lidoderm) 1 PAT TOP DAILY PRN pain #30 PAT may wear up to 12 hours Methylprednisolone. (Medrol) 1 DP PO AD #1 DP 6 on day 1 then reduce by one tablet daily until gone Oxycodone HCl/Acetaminophen (Percocet 5-325 MG Tablet) 1 TAB PO BID PRN back pain #12 TAB (Ariadna Avina) PA/NEEDLE FELT MAKING MACHINE OPERATOR Co-Sign Statement Statement: ED Attending supervision documentation- [x] I saw and evaluated the patient. I have also reviewed all the pertinent lab results and diagnostic results. I agree with the findings and the plan of care as documented in the PA's/NEEDLE FELT MAKING MACHINE OPERATOR's documentation. Patient presents for evaluation of low back pain after stooping down to moss picker a pizza tray and other things while cooking. Patient denies urinary or fecal incontinence, urinary retention or saddle paresthesias. Physical examination reveals a mildly uncomfortable woman while moving. Lower extremity strength is normal. [] I have reviewed the ED Record and agree with the PA's/NEEDLE FELT MAKING MACHINE OPERATOR's documentation. [] Additions or exceptions (if any) to the PAs/NEEDLE FELT MAKING MACHINE OPERATOR's note and plan are summarized below: [] (Edna GARDNER,Tom Arrington) Critical Care Note Critical Care Note Critical Care Time: non-applicable (Vicenta TREVIZO,Ariadna)
--- NOTE | 2017-10-26 17:09 | CT SCAN REPORT ---
EXAMINATION: CT LUMBAR SPINE WITHOUT CONTRAST CLINICAL INFORMATION: Back injury COMPARISON: CT 12/23/2015 TECHNIQUE: Helical non-contrast CT images were obtained through the lumbar spine and 1.25 and 2.5 mm axial reconstructions were reviewed along with sagittal and coronal MPRs. DLP: 821 mGy-cm FINDINGS: Osteopenia. Dextroconvex scoliosis. There is moderate to severe multilevel degenerative disc disease with relative sparing of L3-L4. Moderate facet arthrosis throughout the lumbar spine, as well as degenerative change at the junction of the spinous processes. There is no acute fracture. No traumatic subluxation. Diffuse atherosclerotic calcification. IMPRESSION: No acute fracture or traumatic subluxation. Moderate to severe multilevel degenerative disc disease and facet arthrosis. No significant change.
[2017-10-26] MEDS ORDERED: LIDODERM1 EACH TOP ×2 (18:15→19:40)
[2017-10-26] MEDS ORDERED: MEDROL4 M2 PO ×2 (18:15→19:40)
[2017-10-26] MEDS ORDERED: PERCOCET 5-3251 EACH PO ×2 (18:15→19:40)
[2017-10-26 18:36] VITALS: BP 136/80
== END 2017-10-26 18:36 ==
LOC: ERH 14:57
DX: M54.5 Low back pain (principal); I48.91 Unspecified atrial fibrillation; Z79.01 Long term (current) use of anticoagulants
CPT/HCPCS: 96372; J2930